=== PATIENT | female | born 2000 | race Caucasian/White ===

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

== ENCOUNTER 2021-07-24 07:52 | Outpatient (CLI) | payer OTHER, SELFPAY ==
[2021-07-24 09:48] LABS: Estimated Glomerular Filt Rate > 60
[2021-07-24 10:37] LABS: Collection Time Urine 24 HOURS
[2021-07-24 10:43] LABS: Patient Weight 185 Lbs; Total Protein Urine Random 6 mg/dL
[2021-07-24 14:37] LABS: Total Protein Urine 24 Hr 75 mg/24hr (28-141); Total Volume 24 Hour Urine 1250 ml
[2021-07-24 14:38] LABS: Creatinine Clearance Urine 179.8 ml/min (75-125)
== END 2021-07-24 07:53 | disposition home or self-care (01) ==
PROVIDERS: Visit Provider Obstetrics & Gynecology
DX: O16.9 Unspecified maternal hypertension, unspecified trimester (principal); Z3A.00 Weeks of gestation of pregnancy not specified
CPT/HCPCS: 36415; 81050; 82565; 82575; 84156

== ENCOUNTER 2021-08-20 17:10 | Emergency (ER) | payer OTHER, SELFPAY ==
[2021-08-20 17:12] VITALS: BP 135/82; PULSE 99; RESP 20; TEMP 36.6; O2SAT 100
[2021-08-20] MEDS: METOCLOPRAMIDE HCL INJ 10 MG/2 ML VIAL 5 MG IV PUSH (17:45)
[2021-08-20] MEDS: SODIUM CHLORIDE 0.9% IV 1,000 ML 150 ML IV CONT (17:45)
[2021-08-20] MEDS: MORPHINE SULFATE (*CRX) 4 MG/ML INJ IV PUSH (17:46)
[2021-08-20 17:57] LABS: Basophils Absolute Auto 0.1 K/mm3 (0.0-0.1); Basophils Percent Auto 0.4 % (0.2-1.2); Eosinophils Absolute Auto 0.2 K/mm3 (0-0.3); Eosinophils Percent Auto 1.4 % (0-4.4); Hemoglobin 12.8 g/dL (12.0-15.0); Immature Granulocyte Absolute 0.09 K/mm3 (0.00-0.031); Immature Granulocyte Percent A 0.6 % (0-0.5); Lymphocytes Absolute Auto 2.99 K/mm3 (0.9-3.2); Lymphocytes Percent Auto 20.6 % (18.3-44.2); Mean Corpuscular HGB Conc 35.6 g/dl (32-36); Mean Corpuscular Hemoglobin 32.6 pg (26-34); Mean Corpuscular Volume 91.6 fl (80-100); Monocytes Absolute Auto 1.2 K/mm3 (0.1-0.6); Monocytes Percent Auto 8.3 % (2.6-8.5); Neutrophils Percent Auto 68.7 % (45.5-73.1); Platelet Count Result 232 k/mm3 (150-375); Red Blood Count 3.93 M/mm3 (4.2-5.4); Red Cell Distribution Width 13.2 % (11.5-14.5); White Blood Count 14.5 K/mm3 (4.5-10.0)
[2021-08-20 18:03] LABS: Add Urine Microscopic? YES; Appearance Urine Cloudy (Clear); Bilirubin Urine Negative (Negative); Blood Urine Negative (Negative); Color Urine Yellow (Yellow); Glucose Urine UA Negative (Negative); Ketones Urine Negative (Negative); Leukocyte Esterase Ur Trace LEU/UL (Negative); Mucus Urine Rare /lpf; Nitrate Urine Negative (Negative); Protein Urine Negative (Negative); RBC Urine 0-2 /hpf (0-2); Specific Grav Ur 1.012 (1.001-1.035); Squamous Epithelial Cell Urine Many /hpf (Few); Urobilinogen Urine Negative mg/dL (<2.0)
[2021-08-20 18:07] LABS: Alanine Aminotransferase 17 U/L (4-35); Albumin Level 4.4 g/dL (3.7-5.6); Alkaline Phosphatase 85 U/L (45-116); Anion Gap 10 mmol/L (8-16); Aspartate Amino Transferase 24 U/L (14-36); Bilirubin,Total 0.2 mg/dL (0.2-1.3); Blood Urea Nitrogen 4 mg/dL (8-21); Carbon Dioxide 21 mmol/L (22-30); Chloride 106 mmol/L (98-107); Estimated CRCL calculation 192 ml/min; Estimated Glomerular Filt Rate > 60; Glucose 91 mg/dL (65-110); Potassium 3.6 mmol/L (3.4-5.0); Sodium 137 mmol/L (134-143)
[2021-08-20] MEDS: HYDROmorphone HCL INJ (*CRX) 1 MG/ML SYR 0.5 MG IV PUSH (18:38)
--- NOTE | 2021-08-20 19:29 | ED.HA ---
HPI - Headache General Chief Complaint: Headache Stated Complaint: headache Time Seen by Provider: 08/20/21 17:25 Source: patient and family Mode of arrival: ambulatory Limitations: no limitations History of Present Illness HPI Narrative: 20-year-old 2 para 1 about 20 weeks of gestation here with complaints of right-sided headache since this morning. Patient states that she has taken Fioricet with no relief. She denies any nausea or vomiting. She states that she had preeclampsia with previous . MD elicited complaint: headache Pertinent past history: migraines Onset (ago): day(s) (1) Location: right Severity: moderate Quality & Timing: aching Exacerbating factors: sitting/standing Relieving factors: nothing Associated symptoms: none Treatments prior to arrival: other (Fioricet) Related Data Home Medications Medication Instructions Recorded Confirmed 1 tablet PO DAILY 08/12/20 08/22/20 aspirin 81 mg PO DAILY 08/20/21 [id number] tablet PRN 08/20/21 norethindrone-e.estradiol-iron tablet 08/20/21 [Aurovela 24 Fe] Allergies Allergy/AdvReac Type Severity Reaction Status Date / Time No Known Allergies Allergy Verified 08/20/21 17:32 Review of Systems Review of Systems: All systems reviewed & are unremarkable except as noted in HPI and below Constitutional: Constitutional: Reports no additional constitutional complaints Eyes: Eyes: Reports no additional eye complaints Cardiovascular: Cardiovascular: Reports no additional cardiovascular complaints Respiratory: Respiratory: Reports no additional respiratory complaints Gastrointestinal: Gastrointestinal: Reports no additional gastrointestinal complaints Musculoskeletal: Musculoskeletal: Reports no additional musculoskeletal complaints Neurologic: Reports as per HPI Psychiatric: Psychiatric: Reports no additional psychiatric complaints [facility] Past Medical History Medical History History of pelvic inflammatory disease Social History Social History Smoking status: Never smoker Substance use: never Exam Narrative: GENERAL: Well-appearing, well-nourished, and in no acute distress. HEAD: Normocephalic, atraumatic. EYES: PERRLA and EOMI.. NECK: Supple. CHEST: Clear to auscultation. No respiratory distress. HEART: Regular rate and rhythm. No murmur heard. Normal peripheral pulses. ABDOMEN: Soft, nontender, nondistended, normal active bowel sounds. EXTREMITIES: Normal range of motion. No edema. SKIN: Warm, dry, no rash. NEURO: No focal deficits. Alert and oriented x3. PSYCH: Normal mood and affect. Course Course Emergency Course: Patient still continues to be in pain after IV fluids Reglan and morphine. She states her pain has not improved I did give her 0.5 of Dilaudid which brought the pain down to 5. Discussed with Dr. Drake informed her about the patient?labs. Patient can be discharged home and advised to continue home medication. She feels comfortable going home. Vital Signs Vital signs: Vital Signs Temperature 36.6 C 08/20/21 17:12 Pulse Rate 99 08/20/21 17:12 Respiratory Rate 20 08/20/21 17:12 Blood Pressure 135/82 08/20/21 17:12 Pulse Oximetry 100 08/20/21 17:12 Temperature 36.6 C 08/20/21 17:12 Pulse Rate 99 08/20/21 17:12 Respiratory Rate 20 08/20/21 17:12 Blood Pressure 135/82 08/20/21 17:12 Pulse Oximetry 100 08/20/21 17:12 MDM - Headache Lab Data Result diagrams: 08/20/21 17:45 08/20/21 17:45 Labs: Lab Results 08/20/21 08/20/21 08/20/21 Range/Units 17:45 17:45 17:45 WBC 14.5 H (4.5-10.0) K/mm3 RBC 3.93 L (4.2-5.4) M/mm3 Hgb 12.8 (12.0-15.0) g/dL Hct 36.0 L (37.0-47.0) % MCV 91.6 (80-100) fl MCH 32.6 (26-34) pg MCHC 35.6 (32-36) g/dl RDW 13.2 (11.5-14.5) % Plt
[2021-08-20 19:36] VITALS: BP 111/74; PULSE 75; RESP 16; O2SAT 100
== END 2021-08-20 19:37 | disposition home or self-care (01) ==
PROVIDERS: Emergency Provider Family Medicine
DX: O26.892 Other specified pregnancy related conditions, second trimester (principal); G43.019 Migraine without aura, intractable, without status migrainosus; Z3A.20 20 weeks gestation of pregnancy
CPT/HCPCS: 36415; 80053; 81001; 85025; 96361; 96374; 96375; 99284; J1170; J2270; J2765; J7030

== ENCOUNTER 2021-10-12 21:19 | Emergency (ER) | payer OTHER, SELFPAY ==
[2021-10-12 21:41] VITALS: BP 142/84; PULSE 139; RESP 18; TEMP 37.3; O2SAT 100
--- NOTE | 2021-10-12 22:22 | PC.NURSE ---
Pt stated she was going to check herself out. speech clear. resps even/nonlabored. no s/s of distress. ambulatory c steady, even, unassisted gait.
== END 2021-10-13 04:05 | disposition left against medical advice (07) ==
LOC: ANHED 22:28
DX: Z53.21 Procedure and treatment not carried out due to patient leaving prior to being seen by health care provider (principal)
CPT/HCPCS: 99199

== ENCOUNTER 2021-11-07 11:10 | Outpatient (CLI) | payer OTHER, SELFPAY ==
[2021-11-07 11:35] VITALS: BP 125/80; PULSE 104
[2021-11-07 11:45] VITALS: BP 111/73; PULSE 91
[2021-11-07 11:46] LABS: Basophils Absolute Auto 0.1 K/mm3 (0.0-0.1); Basophils Percent Auto 0.4 % (0.2-1.2); Eosinophils Absolute Auto 0.2 K/mm3 (0-0.3); Eosinophils Percent Auto 1.3 % (0-4.4); Hematocrit 30.7 % (37.0-47.0); Hemoglobin 10.3 g/dL (12.0-15.0); Immature Granulocyte Absolute 0.12 K/mm3 (0.00-0.031); Lymphocytes Absolute Auto 1.96 K/mm3 (0.9-3.2); Lymphocytes Percent Auto 15.8 % (18.3-44.2); Mean Corpuscular HGB Conc 33.6 g/dl (32-36); Mean Corpuscular Hemoglobin 30.7 pg (26-34); Mean Corpuscular Volume 91.4 fl (80-100); Mean Platelet Volume 10.3 fl (7.4-10.4); Monocytes Absolute Auto 1.1 K/mm3 (0.1-0.6); Monocytes Percent Auto 8.6 % (2.6-8.5); Neutrophils Percent Auto 72.9 % (45.5-73.1); Platelet Count Result 200 k/mm3 (150-375); Red Blood Count 3.36 M/mm3 (4.2-5.4); Red Cell Distribution Width 12.8 % (11.5-14.5); White Blood Count 12.4 K/mm3 (4.5-10.0)
[2021-11-07 11:59] LABS: Add Urine Microscopic? YES; Amorphous Sediment Urine Few; Appearance Urine Cloudy (Clear); Bacteria Urine Trace /hpf; Bilirubin Urine Negative (Negative); Blood Urine Negative (Negative); Color Urine Yellow (Yellow); Glucose Urine UA Negative (Negative); Ketones Urine Negative (Negative); Leukocyte Esterase Ur Negative LEU/UL (NEGATIVE); Mucus Urine Rare /lpf; Nitrate Urine Negative (Negative); Protein Urine Negative (Negative); Specific Grav Ur 1.018 (1.001-1.035); Squamous Epithelial Cell Urine Many /hpf (Few); Urobilinogen Urine Negative mg/dL (<2.0)
[2021-11-07 12:00] VITALS: BP 124/78; PULSE 105
[2021-11-07 12:02] LABS: Alanine Aminotransferase 20 U/L (4-35); Albumin Level 3.8 g/dL (3.7-5.6); Alkaline Phosphatase 142 U/L (45-116); Anion Gap 10 mmol/L (8-16); Aspartate Amino Transferase 25 U/L (14-36); Bilirubin,Total 0.3 mg/dL (0.2-1.3); Blood Urea Nitrogen 4 mg/dL (8-21); Calcium 8.6 mg/dL (8.9-10.7); Carbon Dioxide 22 mmol/L (22-30); Chloride 103 mmol/L (98-107); Estimated Glomerular Filt Rate > 60; Glucose 93 mg/dL (65-110); Potassium 3.7 mmol/L (3.4-5.0); Sodium 135 mmol/L (134-143); Uric Acid 3.4 mg/dL (3.0-5.9)
[2021-11-07 12:15] VITALS: BP 120/63; PULSE 92
[2021-11-07 12:30] VITALS: BP 118/73; PULSE 96
--- NOTE | 2021-11-07 12:30 | PC.NURSE ---
Dr. Drake on unit. Labs reviewed. February D/C home.
[2021-11-07 14:33] LABS: Creatinine Urine 122.6 mg/dL; Total Protein Urine Random 9 mg/dL; Ur Ttl Prot Creatinine Ratio 0.07 mg/mg (0-0.20)
== END 2021-11-07 12:51 | disposition home or self-care (01) ==
LOC: ANHOBOP 11:15 → ANHOBPP 11:16
PROVIDERS: Visit Provider Obstetrics & Gynecology
DX: O13.9 Gestational [pregnancy-induced] hypertension without significant proteinuria, unspecified trimester (principal); Z3A.00 Weeks of gestation of pregnancy not specified
CPT/HCPCS: 36415; 59025; 80053; 81001; 82570; 84156; 84550; 85025; 87086; 99199

== ENCOUNTER 2021-11-08 12:32 | Outpatient (NON) | payer OTHER, SELFPAY ==
[2021-11-08 13:27] VITALS: BMI 32.3
[2021-11-08 15:04] LABS: Collection Time Urine 24 HOURS
[2021-11-08 15:07] LABS: Total Volume 24 Hour Urine 1200 ml
[2021-11-08 15:08] LABS: Patient Weight 194 Lbs
[2021-11-08 15:40] LABS: Creatinine Clearance Urine 144.8 ml/min (75-125); Creatinine Urine 97.7 mg/dL; Total Protein Urine 24 Hr 180 mg/24hr (28-141); Total Protein Urine Random 15 mg/dL
== END 2021-11-08 12:33 | disposition home or self-care (01) ==
LOC: ANHOBOP 12:37
PROVIDERS: Visit Provider Obstetrics & Gynecology
DX: R51.9 Headache, unspecified (principal)
CPT/HCPCS: 81050; 82575; 84156

== ENCOUNTER 2021-11-12 15:43 | Outpatient (CLI) | payer OTHER, SELFPAY ==
--- NOTE | ~2021-11-12 | US_ITS ---
EXAMINATION: US right upper quadrant DATE: 11/12/2021 16:07 INDICATION: Right upper quadrant abdominal pain. Third trimester of . TECHNIQUE: Multiple grayscale and Doppler ultrasound images of the abdomen were obtained. COMPARISON: None FINDINGS: The visualized portions of the abnormality of the pancreas are normal. The liver is normal without focal lesion. No liver surface nodularity. There is normal flow in main portal vein. The gall bladder is normal in size. No gallstones or gallbladder wall thickening. There is no sonographic Murp hy sign. The common duct is normal and measures 3 mm. IMPRESSION: 1. Normal right upper quadrant ultrasound. Reviewed, dictated and finalized at location [facility]
== END 2021-11-12 15:44 | disposition home or self-care (01) ==
LOC: ANHIMG 15:44
PROVIDERS: Visit Provider Obstetrics & Gynecology
DX: R10.11 Right upper quadrant pain (principal)
CPT/HCPCS: 76705

== ENCOUNTER 2021-11-20 18:26 | Observation (INO) | payer OTHER, SELFPAY ==
[2021-11-20] VITALS (10 sets, daily range): BP systolic 118–132; BP diastolic 56–80; PULSE 115–142; RESP 18; TEMP 37.6; BMI 32.3
--- NOTE | 2021-11-20 19:37 | OBADM ---
This patient, Glenn Romero, admitted to the OB room Labor/Delivery/Recovery 107 for observation. Patient/family oriented to hospital policies and general routines including ID bracelet, bed and alarms, visiting hours, pain management, procedures, bathroom and other care routines, personal items, smoking policy, room service/diet, and visiting hours. Patient/Family are encouraged to report perceived risks to care and to ask questions if they do not understand what they are told or what they should do.
--- NOTE | 2021-12-16 11:54 | PM.OBTRLD ---
OB - Triage/Final Diagnosis Visit Information Comments/Additional reasons for admission: I have assessed the risk for this patient, Glenn Romero, and determined that she would benefit from observation care. Final Diagnosis (1) False labor: Code(s): O47.9 - False labor, unspecified Status: Acute
== END 2021-11-20 21:39 | disposition home or self-care (01) ==
PROVIDERS: Admitting Provider Obstetrics & Gynecology; Visit Provider Obstetrics & Gynecology
DX: O47.02 False labor before 37 completed weeks of gestation, second trimester (principal); Z3A.34 34 weeks gestation of pregnancy
CPT/HCPCS: G0378; G0379

== ENCOUNTER 2021-11-28 12:13 | Observation (INO) | payer OTHER, SELFPAY ==
[2021-11-28 12:33] VITALS: BP 119/80; PULSE 104
[2021-11-28 12:37] VITALS: TEMP 36.9
[2021-11-28 12:45] VITALS: BP 122/75; PULSE 101
[2021-11-28 13:00] VITALS: BP 117/71; PULSE 97
[2021-11-28 13:06] LABS: Add Urine Microscopic? YES; Amorphous Sediment Urine Moderate; Appearance Urine Cloudy (Clear); Bilirubin Urine Negative (Negative); Blood Urine Negative (Negative); Color Urine Yellow (Yellow); Glucose Urine UA Negative (Negative); Ketones Urine Negative (Negative); Leukocyte Esterase Ur Negative LEU/UL (Negative); Mucus Urine Few /lpf; Nitrate Urine Negative (Negative); Protein Urine 1+ mg/dL (Negative); Specific Grav Ur 1.026 (1.001-1.035); Squamous Epithelial Cell Urine Occasional /hpf (Few); WBC Urine 0-3 /hpf
[2021-11-28 13:15] VITALS: BP 114/78; PULSE 93
[2021-11-28 13:29] VITALS: BMI 32.6
[2021-11-28 13:30] VITALS: BP 119/74; PULSE 102
--- NOTE | 2021-11-28 13:30 | OBADM ---
This patient, Glenn Romero, admitted to the OB room OB Post 112 for observation. Patient/family oriented to hospital policies and general routines including ID bracelet, bed and alarms, visiting hours, pain management, procedures, bathroom and other care routines, personal items, smoking policy, room service/diet, and visiting hours. Patient/Family are encouraged to report perceived risks to care and to ask questions if they do not understand what they are told or what they should do.
--- NOTE | 2021-12-16 11:44 | P.PNOB_ITS ---
OB - Triage/Final Diagnosis Visit Information Comments/Additional reasons for admission: I have assessed the risk for this patient, Glenn Romero, and determined that she would benefit from observation care. Evaluation Laboratory results: Laboratory Tests 11/28/21 12:52 Urine Color Yellow Urine Appearance Cloudy H Urine pH 7.0 Ur Specific [place] 1.026 Urine Protein 1+ H Urine Glucose (UA) Negative Urine Ketones Negative Ur Blood (Man) Negative Urine Nitrate Negative Urine Bilirubin Negative Urine Urobilinogen 2.0 H Leukocyte Esterase Rfl Negative Urine RBC 11-20 H Urine WBC 0-3 Ur Squamous Epith Cells Occasional Amorphous Sediment Moderate H Urine Mucus Few H Final Diagnosis (1) False labor: Code(s): O47.9 - False labor, unspecified Status: Acute
== END 2021-11-28 13:45 | disposition home or self-care (01) ==
PROVIDERS: Admitting Provider Obstetrics & Gynecology; Visit Provider Obstetrics & Gynecology
DX: O47.03 False labor before 37 completed weeks of gestation, third trimester (principal); Z3A.35 35 weeks gestation of pregnancy
CPT/HCPCS: 81001; G0378; G0379

== ENCOUNTER 2021-12-02 19:16 | Observation (INO) | payer OTHER, SELFPAY ==
[2021-12-02 19:30] VITALS: BP 135/79; PULSE 113
[2021-12-02 19:59] VITALS: TEMP 36.9
[2021-12-02 20:41] VITALS: BP 108/57; PULSE 86
[2021-12-02] MEDS: CYCLOBENZAPRINE HCL 10 MG TABLET PO (20:55)
[2021-12-02 21:08] VITALS: BMI 32.3
--- NOTE | 2021-12-02 21:08 | OBADM ---
This patient, Glenn Romero, admitted to the OB room Labor/Delivery/Recovery 106 for observation. Patient/family oriented to hospital policies and general routines including ID bracelet, bed and alarms, visiting hours, pain management, procedures, bathroom and other care routines, personal items, smoking policy, room service/diet, and visiting hours. Patient/Family are encouraged to report perceived risks to care and to ask questions if they do not understand what they are told or what they should do.
--- NOTE | 2021-12-02 21:15 | PC.NURSE ---
2035- called,informed pt came in for back pain and contractions. SVE is 1 cm which is unchanged from her exam last week. Pt has had 2 contractions in the last hour, but still c/o back pain. Heating pad was given to pt when she arrived. Pt states she has taken tylenol, a warm bath, and applied the heating pad all day long. Order received for flexeril and discharge pt home to see at her scheduled appt tomorrow where he can prescribe flexeril if pt states it worked for her.
--- NOTE | 2021-12-04 09:09 | PM.OBTRLD ---
OB - Triage/Final Diagnosis Visit Information Date of evaluation: 12/02/21 Reason for evaluation: threatened labor Comments/Additional reasons for admission: I have assessed the risk for this patient, Glenn Romero, and determined that she would benefit from observation care.
== END 2021-12-02 21:00 | disposition home or self-care (01) ==
PROVIDERS: Admitting Provider Student in an Organized Health Care Education/Training Program; Visit Provider Student in an Organized Health Care Education/Training Program
DX: O47.03 False labor before 37 completed weeks of gestation, third trimester (principal); Z3A.36 36 weeks gestation of pregnancy
CPT/HCPCS: A9270; G0378; G0379

== ENCOUNTER 2021-12-06 15:35 | Outpatient (RCR) | payer OTHER, SELFPAY ==
[2021-11-15 18:14] VITALS: BP 119/73; PULSE 101
[2021-12-06 16:28] VITALS: BP 121/76; PULSE 104
== END 2021-12-24 10:46 | disposition home or self-care (01) ==
LOC: ANHOBOP 15:35
PROVIDERS: Referring Provider Obstetrics & Gynecology; Visit Provider Obstetrics & Gynecology
DX: O09.293 Supervision of pregnancy with other poor reproductive or obstetric history, third trimester (principal); Z3A.33 33 weeks gestation of pregnancy; O36.8130 Decreased fetal movements, third trimester, not applicable or unspecified; Z3A.36 36 weeks gestation of pregnancy
CPT/HCPCS: 59025

== ENCOUNTER 2021-12-10 13:52 | Outpatient (CLI) | payer OTHER, SELFPAY ==
[2021-12-10 14:15] VITALS: BP 120/82; PULSE 111
[2021-12-10 14:30] VITALS: BP 113/73; PULSE 109
[2021-12-10 14:44] LABS: Basophils Percent Auto 0.3 % (0.2-1.2); Eosinophils Absolute Auto 0.1 K/mm3 (0-0.3); Eosinophils Percent Auto 0.6 % (0-4.4); Hematocrit 29.7 % (37.0-47.0); Hemoglobin 9.8 g/dL (12.0-15.0); Immature Granulocyte Absolute 0.06 K/mm3 (0.00-0.031); Immature Granulocyte Percent A 0.5 % (0-0.5); Lymphocytes Absolute Auto 2.03 K/mm3 (0.9-3.2); Lymphocytes Percent Auto 17.7 % (18.3-44.2); Mean Corpuscular Volume 87.9 fl (80-100); Mean Platelet Volume 10.6 fl (7.4-10.4); Monocytes Absolute Auto 1.3 K/mm3 (0.1-0.6); Monocytes Percent Auto 11.6 % (2.6-8.5); Neutrophils Percent Auto 69.3 % (45.5-73.1); Platelet Count Result 202 k/mm3 (150-375); Red Blood Count 3.38 M/mm3 (4.2-5.4); Red Cell Distribution Width 13.2 % (11.5-14.5); White Blood Count 11.5 K/mm3 (4.5-10.0)
[2021-12-10 14:45] VITALS: BP 117/76; PULSE 107
[2021-12-10 14:54] LABS: Alanine Aminotransferase 16 U/L (4-35); Albumin Level 3.6 g/dL (3.5-5.1); Alkaline Phosphatase 189 U/L (38-126); Anion Gap 6 mmol/L (8-16); Aspartate Amino Transferase 27 U/L (14-36); Bilirubin,Total 0.4 mg/dL (0.2-1.3); Blood Urea Nitrogen 5 mg/dL (7-17); Calcium 8.2 mg/dL (8.4-10.2); Carbon Dioxide 22 mmol/L (22-30); Chloride 105 mmol/L (98-107); Estimated Glomerular Filt Rate > 60; Glucose 74 mg/dL (65-110); Potassium 3.8 mmol/L (3.4-5.0); Sodium 133 mmol/L (137-145); Uric Acid 3.8 mg/dL (2.5-7.5)
[2021-12-10 14:56] LABS: Add Urine Microscopic? NO; Appearance Urine Clear (Clear); Bilirubin Urine Negative (Negative); Blood Urine Negative (Negative); Color Urine Yellow (Yellow); Glucose Urine UA Negative (Negative); Ketones Urine Negative (Negative); Leukocyte Esterase Ur Negative LEU/UL (NEGATIVE); Nitrate Urine Negative (Negative); Protein Urine Negative (Negative); Specific Grav Ur 1.016 (1.001-1.035); Urobilinogen Urine Negative mg/dL (<2.0)
[2021-12-10 15:00] VITALS: BP 112/70; PULSE 98
[2021-12-10 15:15] VITALS: BP 113/70; PULSE 103
[2021-12-10 15:39] LABS: Creatinine Urine 96.4 mg/dL; Total Protein Urine Random 12 mg/dL; Ur Ttl Prot Creatinine Ratio 0.12 mg/mg (0-0.20)
[2021-12-10] MEDS: ACETAMINOPHEN/BUTALBITAL/CAFFEINE 325-50-40 MG TABLET (FIORICET) 1 TAB PO (15:55)
== END 2021-12-10 15:50 | disposition home or self-care (01) ==
LOC: ANHOBOP 13:57 → ANHOBPP 13:58
PROVIDERS: Visit Provider Obstetrics & Gynecology
DX: O13.9 Gestational [pregnancy-induced] hypertension without significant proteinuria, unspecified trimester (principal); Z3A.00 Weeks of gestation of pregnancy not specified
CPT/HCPCS: 36415; 59025; 80053; 81003; 82570; 84156; 84550; 85025; 87086; 87088; 99199; A9270

== ENCOUNTER 2021-12-12 12:43 | Outpatient (CLI) | payer OTHER, SELFPAY ==
[2021-12-12 14:26] VITALS: BMI 33.5
[2021-12-12 15:10] LABS: Collection Time Urine 24 HOURS
[2021-12-12 15:23] LABS: Total Volume 24 Hour Urine 1600 ml
[2021-12-12 15:27] LABS: Patient Weight 195 Lbs
[2021-12-12 15:29] LABS: Total Protein Urine 24 Hr 288 mg/24hr (28-141); Total Protein Urine Random 18 mg/dL
[2021-12-12 15:30] LABS: Creatinine Clearance Urine 205.3 ml/min (75-125); Creatinine Urine 82.4 mg/dL
== END 2021-12-12 12:44 | disposition home or self-care (01) ==
LOC: ANHOBOP 14:09
PROVIDERS: Visit Provider Obstetrics & Gynecology
DX: O13.3 Gestational [pregnancy-induced] hypertension without significant proteinuria, third trimester (principal); Z3A.38 38 weeks gestation of pregnancy
CPT/HCPCS: 81050; 82575; 84156

== ENCOUNTER 2021-12-17 05:44 | Inpatient (IN) | payer OTHER, SELFPAY ==
[2021-12-17] VITALS (76 sets, daily range): BP systolic 90–130; BP diastolic 45–97; PULSE 75–140; TEMP 36.3–38.6; O2SAT 98–100; BMI 33.3
--- NOTE | 2021-12-17 06:21 | LDADM ---
This patient, Glenn Romero, was admitted to Labor/Delivery/Recovery 103 on 12/17/21 at 05:44. Plans for labor, pain management and were discussed with patient. Patient/family oriented to hospital policies and general routines including ID bracelet, bed and alarms, visiting hours, pain management, procedures, bathroom and other care routines, personal items, smoking policy, room service/diet and guest tray routines, infant security routines, and visiting hours. Patient/Family are encouraged to report perceived risks to care and to ask questions if they do not understand what they are told or what they should do. See OBIX for further documentation.
--- NOTE | 2021-12-17 06:21 | WPDANESEPP ---
Anes - Eval Pre Procedure Procedure: Labor epidural Date/Time: 12/17/21 06:21 Surgeon: Noelle Preop Diagnosis: Abd pain with contractions Pre Op Diagnosis: IOL Patient Data Age: 21 Gender: F Height: Weight: Last Vital Signs Pulse 108 H 12/17/21 06:18 BP 117/77 12/17/21 06:18 Allergies Allergy/AdvReac Type Severity Reaction Status Date / Time No Known Allergies Allergy Verified 12/07/21 13:24 Home Medications Medication Instructions Recorded Confirmed Type 1 tablet PO DAILY 08/12/20 11/20/21 History aspirin 81 mg PO DAILY 08/20/21 11/20/21 History Patient hx anesthesia problems: none Family hx anesthesia problems: none Results Review: All pre-operative results and documents have been reviewed as part of the pre-operative evaluation. [facility] Past Medical History Medical History Anemia History of pelvic inflammatory disease PIH ( induced hypertension) Post depression Preeclampsia and not yet delivered Scoliosis Family History Family History Sibling Asthma Sibling ADHD Asthma Father Hypertension Social History Social History Smoking status: Never smoker Substance use: never Spiritual care concerns: No Exam Day of Procedure 12/17/21 06:21 Patient weight: overweight Airway: Mallampati scale class II Neurological: alert and oriented
[2021-12-17 06:46] LABS: Basophils Absolute Auto 0.1 K/mm3 (0.0-0.1); Basophils Percent Auto 0.5 % (0.2-1.2); Eosinophils Absolute Auto 0.2 K/mm3 (0-0.3); Hematocrit 29.1 % (37.0-47.0); Hemoglobin 9.4 g/dL (12.0-15.0); Immature Granulocyte Absolute 0.06 K/mm3 (0.00-0.031); Immature Granulocyte Percent A 0.6 % (0-0.5); Lymphocytes Absolute Auto 2.53 K/mm3 (0.9-3.2); Lymphocytes Percent Auto 24.3 % (18.3-44.2); Mean Corpuscular HGB Conc 32.3 g/dl (32-36); Mean Corpuscular Hemoglobin 28.3 pg (26-34); Mean Corpuscular Volume 87.7 fl (80-100); Mean Platelet Volume 10.6 fl (7.4-10.4); Monocytes Absolute Auto 1.2 K/mm3 (0.1-0.6); Neutrophils Absolute Auto 6.4 K/mm3 (1.3-6.7); Neutrophils Percent Auto 61.6 % (45.5-73.1); Platelet Count Result 202 k/mm3 (150-375); Red Blood Count 3.32 M/mm3 (4.2-5.4); Red Cell Distribution Width 13.6 % (11.5-14.5); White Blood Count 10.4 K/mm3 (4.5-10.0)
[2021-12-17] MEDS: OXYTOCIN 30 UNITS/NS 500 ML 30 UNITS/500 ML BAG IV CONT (06:47)
[2021-12-17] MEDS: LACTATED RINGERS 1,000 ML 125 ML IV CONT ×2 (06:48→11:34)
[2021-12-17 07:17] LABS: Alanine Aminotransferase 21 U/L (4-35); Albumin Level 3.4 g/dL (3.5-5.1); Alkaline Phosphatase 185 U/L (38-126); Anion Gap 9 mmol/L (8-16); Aspartate Amino Transferase 38 U/L (14-36); Bilirubin,Total 0.2 mg/dL (0.2-1.3); Blood Urea Nitrogen 4 mg/dL (7-17); Calcium 7.9 mg/dL (8.4-10.2); Carbon Dioxide 20 mmol/L (22-30); Chloride 105 mmol/L (98-107); Estimated CRCL calculation 195 ml/min; Estimated Glomerular Filt Rate > 60; Glucose 88 mg/dL (65-110); Potassium 3.7 mmol/L (3.4-5.0); Sodium 134 mmol/L (137-145); Uric Acid 4.1 mg/dL (2.5-7.5)
--- NOTE | 2021-12-17 08:40 | WPDOBADMIT ---
Obstetrics - Admit Note Admission Note: record reviewed. Additions to the history and/or subsequent changes in the physical findings follow. 21 y/o at 38 2/7 weeks with a history of severe preeclampsia with 35 week delivery in previous . BP has been gradually increasing. Headaches have been increasing. Cervix is favorable. She has elected to go ahead with induction of labor. GBS neg. AVSS NST reactive TOCO: contractions irregularly ABD soft, nontender, gravid, vertex EXT nontender Cervix 3/50/-2. AROM with clear fluid. A: IUP at term with mildly elevated bp, history of prior severe preeclampsia. P: Oxytocin. Anticipate .
[2021-12-17 10:36] LABS: Rapid Plasma Reagin Non-Reactive (NonReactive)
--- NOTE | 2021-12-17 12:45 | PM.OBPNLAB ---
Pain Control Date/time seen: 12/17/21 1245 Comfortable with epidural. AVSS NST reactive TOCO: contractions every 2-3 min Cervix /-2 Continue labor.
[2021-12-17] MEDS: SODIUM CHLORIDE 0.9% IV 300 ML 600 ML I-UTERINE (16:35)
--- NOTE | 2021-12-17 17:45 | PM.OBPNLAB ---
Pain Control Date/time seen: 12/17/21 1745 Comfortable with epidural. AVSS ABD soft, nontender, gravid, vertex EXT nontender Cervix /1 Continue labor.
--- NOTE | 2021-12-17 20:59 | PM.OBPRVD ---
OB - Delivery Note Procedure Delivery date: 12/17/21 Procedure: Induction of labor with Induction method: Per Pitocin Protocol Delivery augmentation: Rupture of Membranes Delivery monitor: External FHT, External Uterine and Internal Uterine Route of delivery: Laceration Description: Perineal - 1st Degree Delivery repair: vicryl (3-0 vicryl) Specimen: Yes (cord blood, placenta) Quantitative Blood Loss (ml): 110 Anesthesia type: Epidural Disposition: PACU Complications: None Narrative: 21 y/o at 38 2/7 weeks gestation who presented to the hospital for induction of labor. Oxytocin was administered intravenously. Amniotomy was performed with return of clear fluid. She received an epidural for pain control. Her labor progressed and her cervix dilated completely. She pushed with good effort and delivered the infant's head to the perineum. A loose nuchal cord was splinted and the body delivered. The cord was reduced. The nose and mouth were bulb suctioned. After a delay, the cord was clamped and cut. The was handed off the field. Cord blood was collected. The placenta delivered spontaneously and was grossly normal in appearance. The usual 3 vessel cord was noted. A first degree midline perineal laceration was sustained. This was reapproximated using 3 0 Vicryl in interrupted figure of eight fashion. Excellent hemostasis resulted as did excellent reapproximation of the normal anatomy. Needle and instrument counts were correct. The patient was taken to recovery room in stable condition. The infant went to the nursery in stable condition. I was present and scrubbed for the entire delivery. Baby Date of : 12/17/21 Time of : 20:35 Weeks of gestation at delivery: 38 Infant gender: Female Weight (pounds): 7 Weight (ounces): 13 presentation: vertex position: Left Occiput Anterior Placenta delivery description: Spontaneous Cord Vessel Description: 3 Vessels, Nuchal Cord and Delayed Cord Clamping score one minute: 9 score five minutes: 9
--- NOTE | 2021-12-17 21:02 | PM.OBDSVD ---
DS: Admitting Diagnosis Discharge Date 12/19/21 Admitting Diagnosis IUP at 38 2/7 weeks Gestational hypertension DS: Discharge Diagnosis Discharge Diagnosis (1) (normal spontaneous vaginal delivery): Code(s): O80 - Encounter for full-term uncomplicated delivery Status: Acute (2) Gestational hypertension: Code(s): O13.9 - Gestational [-induced] hypertension without significant proteinuria, unspecified trimester Status: Acute (3) History of pre-eclampsia in prior , currently : Code(s): O09.299 - Supervision of with other poor reproductive or obstetric history, unspecified trimester Status: Acute OB - DS: Summary OB Procedures : None OB Procedures Intrapartum: Spontaneous Vag Delivery OB Procedures: : None DS: Data Data Completed and Pending Labs on day of discharge: Labs from last 24 hours 12/17/21 12/17/21 12/17/21 06:28 06:28 06:28 WBC RBC Hgb Hct MCV MCH MCHC RDW Plt Count MPV Immature Gran % (Auto) Neut % (Auto) Lymph % (Auto) [place] % (Auto) Eos % (Auto) Baso % (Auto) Lymph # (Auto) [place] # (Auto) Eos # (Auto) Baso # (Auto) Abs Immat Gran (auto) Absolute Neuts (auto) Absolute Nucleated RBC Nucleated RBC % Sodium 134 L Potassium 3.7 Chloride 105 Carbon Dioxide 20 L Anion Gap 9 BUN 4 L Creatinine 0.40 L Estim Creat Clear Calc 195 Estimated GFR > 60 Glucose 88 Uric Acid 4.1 Calcium 7.9 L Total Bilirubin 0.2 AST 38 H ALT 21 Alkaline Phosphatase 185 H Total Protein 6.0 L Albumin 3.4 L RPR Non-reactive Blood Type O Positive Antibody Screen Negative 12/17/21 06:28 WBC 10.4 H RBC 3.32 L Hgb 9.4 L Hct 29.1 L MCV 87.7 MCH 28.3 MCHC 32.3 RDW 13.6 Plt Count 202 MPV 10.6 H Immature Gran % (Auto) 0.6 H Neut % (Auto) 61.6 Lymph % (Auto) 24.3 [place] % (Auto) 11.0 H Eos % (Auto) 2.0 Baso % (Auto) 0.5 Lymph # (Auto) 2.53 [place] # (Auto) 1.2 H Eos # (Auto) 0.2 Baso # (Auto) 0.1 Abs Immat Gran (auto) 0.06 H Absolute Neuts (auto) 6.4 Absolute Nucleated RBC 0.0 Nucleated RBC % 0.0 Sodium Potassium Chloride Carbon Dioxide Anion Gap BUN Creatinine Estim Creat Clear Calc Estimated GFR Glucose Uric Acid Calcium Total Bilirubin AST ALT Alkaline Phosphatase Total Protein Albumin RPR Blood Type Antibody Screen Discharge Plan Discharge Attending physician on discharge: Kishor Drake Discharging Clinician: Kishor Drake Patient Disposition: Home, Self-Care Activity: pelvic rest Diet: regular Discharge Instructions: Call or return if temperature above 100.4? F, increased abdominal pain, increased vaginal bleeding or any new problems. Stand Alone Forms: General Discharge Information Follow-up/Referrals: Kishor Drake MD [Physician] - 6 Weeks Discharge Medications: New ibuprofen 600 mg tablet 600 mg PO Q6H PRN (Reason: cramps) Qty: 30 RF: 0 ferrous sulfate 325 mg (65 mg iron) tablet 325 mg PO DAILY Qty: 30 RF: 0 Continued 400 mcg Tablet,Chewable 1 tablet PO DAILY RF: 0 Date of admission: 12/17/21 05:44 Primary Care Provider: PHYSICIAN,PLANT OPERATOR Admitting Provider: Kishor Drake Attending physician on admission: Kishor Drake Condition: Stable
[2021-12-17] MEDS: OXYTOCIN 30 UNITS/NS 500 ML 30 UNITS/500 ML BAG 125 UNITS IV CONT (21:30)
[2021-12-17] MEDS: IBUPROFEN 600 MG TABLET PO (23:11)
--- NOTE | 2021-12-18 00:22 | OBPPTRN ---
Patient transferred to post room #292 via wheelchair. Support person present. Oriented to unit, room, information board, rooming in, admission packet and security measures. Patient verbalizes understanding.
[2021-12-18 00:30] VITALS: BP 113/73; PULSE 76; RESP 16; TEMP 37.3; O2SAT 98
[2021-12-18] MEDS: ACETAMINOPHEN 325 MG TABLET 650 MG PO ×3 (01:42→19:41)
[2021-12-18 04:17] VITALS: BP 101/57; PULSE 78; RESP 18; TEMP 36.4; O2SAT 98
[2021-12-18] MEDS: IBUPROFEN 600 MG TABLET PO ×2 (05:00→16:15)
[2021-12-18 05:27] LABS: Hematocrit 29.9 % (37.0-47.0); Hemoglobin 9.5 g/dL (12.0-15.0)
[2021-12-18 08:30] VITALS: BP 118/77; PULSE 84; RESP 18; TEMP 36.3; O2SAT 99
[2021-12-18] MEDS: MULTIVIT/MIN/PREN/FOL AC/IRON TABLET 1 TAB PO (09:33)
[2021-12-18] MEDS: POLYSACCHARIDE IRON COMPLEX 150 MG CAPSULE PO ×2 (09:33→16:15)
[2021-12-18] MEDS: DOCUSATE SODIUM 100 MG CAPSULE PO ×2 (09:34→16:15)
--- NOTE | 2021-12-18 09:58 | WPDANLDPN2 ---
Anes-Prog Note L&D Date/Time: 12/18/21 09:58 Comfortable throughout: labor and delivery Neuraxial method: epidural Epidural/Spinal procedure site: clean & non-tender Neuro status: Neuro function grossly intact. Cardiovascular status: normal Respiratory status: normal Airway patency: baseline Mental status: baseline Post-Op hydration status: normal Vital Signs: Last Vital Signs Temp 36.3 C L 12/18/21 08:30 Pulse 84 12/18/21 08:30 Resp 18 12/18/21 08:30 BP 118/77 12/18/21 08:30 Pulse Ox 99 12/18/21 08:30 Pain score (VAS): 0 I/O: Intake & Output 12/17/21 12/18/21 12/18/21 23:59 07:59 15:59 Intake Total 500 Output Total 110 523 Balance -110 -23 Post-procedural complaints: none Patient feedback: Patient satisfied with anesthetic care.
[2021-12-18 12:05] VITALS: BP 115/64; PULSE 77; RESP 16; TEMP 36.3; O2SAT 99
--- NOTE | 2021-12-18 12:28 | PC.NURSE ---
[id number] Introductions were made. Mother has latched optimally to the breast and denies any discomfort. Reviewed good handwashing when working with infant, breast, nipples and how to protect the nipples with a deep latch. Encouraged understanding the benefits of skin to skin, responding to feeding cues, frequencies of feeding 8-12 times in 24 hours (approximately 2-3 hours), duration of feedings, milk production, intake/output feeding sheet and signs of adequate intake. Discussed stimulating with skin to skin, hand expressing colostrum, touch and talking to infant to encourage eating at the breast. Reviewed positioning and alignment, supporting breast, off-centered (asymmetrical latch) and leading with the chin with big open wide gape. Education given to mother of how to visualize suck/swallow ratios and drinking at the breast. was [able/not able] to maintain latch without discomfort to mother. Nipple care with optimal latch. Mother voiced understanding responding to feeding cues, may need to stimulating approximately 2-3 hours from the start of the last feeding, calling for assistance if the infant does not latch or there discomfort . Reported to primary RN.
--- NOTE | 2021-12-18 12:32 | PC.NURSE ---
[phone] Patient called out for assistance with . Mother works well with her . Reviewed good handwashing when working with infant, breast, nipples and how to protect the nipples with a deep latch. Encouraged understanding the benefits of skin to skin, responding to feeding cues, frequencies of feeding 8-12 times in 24 hours (approximately 2-3 hours), duration of feedings, milk production, intake/output feeding sheet and signs of adequate intake. Discussed stimulating with skin to skin, hand expressing colostrum, touch and talking to to encourage eating at the breast. Reviewed positioning and alignment, supporting breast, off-centered (asymmetrical latch) and leading with the chin with big open wide gape. Mother has the latched to the left breast in cross cradle but assessment shows infant resting with the nipple in the mouth. Parents express that this is what the has been doing with this feeding.Worked with assisting mom with infant to the left breast in football position and stayed latched optimally for 7 min with a good suck/ swallow ratio, then baby detached. Assisted mother with to the right breast with football positioning. Education given to mother of how to visualize suck/swallow ratios and drinking at the breast. Infant was able to maintain latch without discomfort to mother. Nipple care, comfort and healing with warm, wet washcloth to rinse breast and leave to air-dry. Colostrum may be left on nipples to dry but have clean hands when touching the nipple/breast. Resources used to facilitate learning were used from the visual handout/ tool/mom and baby guide. Mother voiced understanding responding to feeding cues, may need to stimulating approximately 2-3 hours from the start of the last feeding, calling for assistance if the infant does not latch or there discomfort . Reported to primary RN.
--- NOTE | 2021-12-18 15:45 | PM.OBPNVD ---
OB - PN: Subj Subjective Date/time seen: 12/18/21 15:45 Narrative: Pain OK. OB - PN: Obj Data Labs CBC & Chem 7: 12/18/21 04:12 12/17/21 06:28 Labs: Laboratory Results - last 24 hr 12/18/21 04:12 Hgb 9.5 L Hct 29.9 L OB - PN A/P Plan Comments: A: PPD#1, doing well. P: Routine care. Exam Psych: Other: AVSS ABD soft, nontender, fundus firm EXT nontender
[2021-12-18 16:00] VITALS: BP 116/72; PULSE 89; RESP 16; TEMP 36.4; O2SAT 100
[2021-12-18 19:20] VITALS: BP 105/64; PULSE 82; RESP 16; TEMP 36.7; O2SAT 99
[2021-12-19] MEDS: IBUPROFEN 600 MG TABLET PO ×2 (00:35→09:24)
[2021-12-19 07:30] VITALS: BP 109/72; PULSE 80; RESP 16; TEMP 37.1; O2SAT 100
--- NOTE | 2021-12-19 08:52 | PM.OBPNVD ---
OB - PN: Subj Subjective Date/time seen: 12/19/21 08:52 Narrative: Pain OK. Would like to go home. OB - PN: Obj Data Labs CBC & Chem 7: 12/18/21 04:12 12/17/21 06:28 OB - PN A/P Plan Comments: A: PPD#2, doing well. P: Home to f/u 6 weeks. Exam Psych: Other: AVSS ABD soft, nontender, fundus firm EXT nontender
[2021-12-19] MEDS: POLYSACCHARIDE IRON COMPLEX 150 MG CAPSULE PO (09:24)
[2021-12-19] MEDS: DOCUSATE SODIUM 100 MG CAPSULE PO (09:24)
[2021-12-19] MEDS: MULTIVIT/MIN/PREN/FOL AC/IRON TABLET 1 TAB PO (09:24)
--- NOTE | 2021-12-19 09:30 | PC.NURSE ---
Patient instructed on viewing the discharge video Mother & Baby Care, The First Two Weeks . Patient was given the opportunity and encouraged to ask questions. Patient verbalized understanding of information shared and has been given the mother/baby guide for home reference.
--- NOTE | 2021-12-19 10:13 | PC.NURSE ---
[phone] [id number] Consulted with patient to assess needs related to . Mother led conversation with her experience with feeding baby so far. Mother works well with her infant. Infant has had appropriate feedings in the past 24 hours and meets the outcomes for weight, output and jaundice. Mother states she feels confident to continue effectively her infant at home. Reviewed production of human milk, transition of milk, signs of adequate intake and engorgement prevention/relief and when to call the care provider using the mom and baby guide. Reviewed community resources and outpatient services as listed in the mom and baby guide/[facility] website. Reinforced watching for feeding cues with responsive feeding and how to stimulate infant to initiate feeding three hours from the start of the last feeding. Mother voiced understanding of information shared. Reported to primary RN.
--- NOTE | 2021-12-19 12:30 | PC.NURSE ---
Patient declines follow up appointment here at the [place]. She already has a follow up tomorrow with her screw machine adjuster automatic at 9:00 am. Pre-eclampsia handout reviewed.
== END 2021-12-19 12:58 | disposition home or self-care (01) | DRG 560 ==
LOC: ANHLDR 21:04 → ANHOB2 12-18 01:07
PROVIDERS: Admitting Provider Obstetrics & Gynecology; Visit Provider Obstetrics & Gynecology
DX: O13.4 Gestational [pregnancy-induced] hypertension without significant proteinuria, complicating childbirth (principal); Z37.0 Single live birth; Z3A.38 38 weeks gestation of pregnancy; O36.8330 Maternal care for abnormalities of the fetal heart rate or rhythm, third trimester, not applicable or unspecified; O70.0 First degree perineal laceration during delivery; O99.892 Other specified diseases and conditions complicating childbirth; Z87.59 Personal history of other complications of pregnancy, childbirth and the puerperium; O69.81X0 Labor and delivery complicated by cord around neck, without compression, not applicable or unspecified; O99.02 Anemia complicating childbirth; D64.9 Anemia, unspecified; M41.9 Scoliosis, unspecified
CPT/HCPCS: 36415; 80053; 84550; 85014; 85018; 85025; 86592; 86850; 86900; 86901; 88307; A9270; J0131; J2590; J2795; J7030; J7120

== ENCOUNTER 2022-07-15 15:25 | Outpatient (CLI) | payer OTHER, SELFPAY ==
--- NOTE | 2022-07-15 | ECG_ITS ---
Measurements Intervals [place] Rate: 70 P: 67 OK: 147 QRS: 4 QRSD: 95 T: 18 QT: 418 QTc: 452 Interpretive Statements SINUS RHYTHM WITH SINUS ARRHYTHMIA LOW QRS VOLTAGE IN PRECORDIAL LEADS [QRS DEFLECTION < 1.0 mV IN CHEST LEADS] BORDERLINE ECG NO PREVIOUS ECG AVAILABLE FOR COMPARISON Electronically Signed On 07-15-2022 17:10:27 CDT by Lukas Bird M.D.
== END 2022-07-15 15:26 | disposition home or self-care (01) ==
PROVIDERS: Visit Provider Obstetrics & Gynecology
DX: R00.2 Palpitations (principal)
CPT/HCPCS: 93005

== ENCOUNTER 2022-08-27 18:53 | Emergency (ER) | payer OTHER, SELFPAY ==
[2022-08-27 19:06] VITALS: BP 125/72; PULSE 110; RESP 18; TEMP 38.5; O2SAT 100
--- NOTE | 2022-08-27 19:25 | ED.GENADULT ---
HPI - General Adult General Chief complaint: Ear Stated complaint: Headache/Ear Pain Time Seen by Provider: 08/27/22 19:25 Source: patient, RN notes reviewed and old records reviewed Mode of arrival: ambulatory Limitations: no limitations History of Present Illness HPI narrative: 21-year-old female who presents to [facility] with complaints of headache with fevers up to 101F since yesterday at noon with bilateral ear pain and scratchy throat.Patient reports that she has been taking Tylenol and Ibuprofen for her symptoms. Patient reports that she has not had Covid vaccinations or flu shot. Patient denies any cough or congestion, denies any shortness of breath or any wheezing. MD complaint: ear pain, fevers, scratchy throat, headache Onset (ago): day(s) (2) Severity scale (1-10): 8 Treatments prior to arrival: NSAID and other (Tylenol) Related Data Home Medications Medication Instructions Recorded Confirmed vitamins no.144-folic 1 tablet PO DAILY 08/12/20 12/17/21 acid 400 mcg chewable tablet () Allergies Allergy/AdvReac Type Severity Reaction Status Date / Time No Known Allergies Allergy Verified 12/07/21 13:24 Review of Systems Review of Systems: CONSTITUTIONAL: reports malaise, chills, sweats, or fever. EYES: Denies visual changes, redness, or discharge. ENT: Reports minimal rhinorrhea, congestion, no sinus pain, otalgia bilaterally and sore throat. CARDIOVASCULAR: Denies chest pain, palpitations, or edema. RESPIRATORY: No reported cough.? Denies dyspnea. GASTROINTESTINAL: Denies abdominal pain, nausea, vomiting, diarrhea SKIN: Denies rash or itching. MUSCULOSKELETAL: Denies myalgia. NEUROLOGIC: Reports headache. All systems reviewed & are unremarkable except as noted in HPI and below PMFSH Past Medical History Medical History (Updated 09/01/22 @ 11:24 by Stephanie Allan NP) Anemia Asthma as child History of pelvic inflammatory disease PIH ( induced hypertension) Post depression Preeclampsia and not yet delivered Scoliosis Surgical History Surgical History (Updated 09/01/22 @ 11:22 by Stephanie Allan NP) History of appendectomy History of foot surgery Family History Family History Sibling Asthma Sibling ADHD Asthma Father Hypertension Social History Social History Smoking status: Never smoker Substance use: never Spiritual care concerns: No Comments At time of signature, agree with nursing past medical, surgical, social and family history. There is no relevant family history pertinent to the presenting complaint Exam Narrative: GENERAL: Well-appearing, well-nourished, and in no acute distress. HEAD: Normocephalic EYES: PERRLA, conjunctivae clear ENT: Nares clear, turbinates edematous and erythematous, clear discharge. Mucous membranes moist. TM pearly sam with dull light reflex bilaterally; no tragal tenderness. Oropharynx erythematous without lesions. Tonsils not enlarged and without exudate, no drooling, no hoarseness, no trismus, uvula midline.some post nasal drainage. NECK: Supple. No lymphadenopathy CHEST: Clear to auscultation, breath sounds equal. No wheezing, rhonchi, rales, or stridor. No respiratory distress, speaks in full sentences.SAO2 100% on room air HEART: Regular rate and rhythm. No murmur heard. SKIN: Warm, dry, no rash. NEURO: Alert and oriented x3. PSYCH: Normal mood and affect Course Course Emergency Course: Patient is aware of diagnosis, understands and agrees to treatment plan.? Anticipatory guidance given.? Patient agrees to follow-up as directed and is aware of reasons to seek care at the emergency department. Portions of this record may have been created with voice recognition software Level of Care: Express Care Visit Vital Signs Vital signs: Celina
== END 2022-08-27 19:55 | disposition home or self-care (01) ==
PROVIDERS: Emergency Provider Registered Nurse
DX: J10.1 Influenza due to other identified influenza virus with other respiratory manifestations (principal); M41.9 Scoliosis, unspecified
CPT/HCPCS: 87804; 99213; G0463

== ENCOUNTER 2023-11-10 00:17 | Day surgery (SDC) | payer OTHER, SELFPAY ==
[2023-11-06 08:44] VITALS: BMI 29.1
--- NOTE | 2023-11-06 08:49 | PC.NURSE ---
Report to the Outpatient Waiting Room, entrance under the green pavilion located off [facility], at time 1100 on date 11/10/23. Planned Procedure Time: 1300. Time changes happen often and if your time is changed the preop area will call you the afternoon before. - You and your visitor will be asked to self-screen and do not enter if you have any COVID symptoms. - A mask is optional within the hospital at this time. Patients may have clear liquids (water, carbonated beverages, clear teas, apple juice) until 3 hours prior to surgery with a maximum of 20 ounces. - No food from midnight until time of surgery Take the following medications with a SIP of water the morning of surgery: N/A DO NOT STOP ANY OF YOUR OTHER PRESCRIPTION MEDICATIONS PRIOR TO SURGERY ?EXCEPT THE FOLLOWING Medications to discontinue per physician: N/A Date to take last dose: N/A Please no make-up, nail hebrew, hairspray, perfume, deodorant, or body powder the day of surgery. No jewelry (including any body piercings) or valuables the day of surgery, leave them at home. Please take a shower or bath the night before, or the morning of, surgery with an antibacterial soap. Wear comfortable, loose fitting clothing. - Jewelry must be removed prior to entering the operating room. Rings and piercings that are not removed may be cut off. - The hospital will not accept responsibility for valuables. - Please leave all valuables, including medications, at home the day of surgery. If you are going home after surgery, a licensed power screwdriver operator must drive you home. - NO public transportation without another adult if you receive anesthesia. - We recommend that an adult stay with you for 24 hours following discharge. - We also recommend that you do not drive, make important decision, drink alcoholic beverages, or take any drugs that were not prescribed by your health care provider for at least 24 hours after your discharge time. Follow any additional instructions given to you from your surgeon. If you or anyone in your household have experienced Covid symptoms in the past week, please notify your surgeon or the nurse liaison at the phone number below for possible testing. Telephone instructions given to PT Guera HOLMAN and asked if any additional questions and then verbalized understanding. Patient advised to call surgeon office or pre surgery nurse liaison [phone] if any additional questions.
--- NOTE | 2023-11-09 17:43 | PM.IMHP ---
H&P: HPI History of Present Illness Date/Time: 11/09/23 17:43 Chief Complaint: Recurrent tonsillitis adenoid hypertrophy snoring Narrative: planned procedure Review of Systems Review of Systems: All systems reviewed & are unremarkable except as noted in HPI and below [facility] Past Medical History Medical History Anemia Asthma as child History of pelvic inflammatory disease PIH ( induced hypertension) Post depression Preeclampsia and not yet delivered Scoliosis Surgical History Surgical History History of appendectomy History of foot surgery Family History Family History (Updated 08/31/23 @ 10:24 by Olivia Sanford) Sibling Asthma Sibling ADHD Asthma Father Hypertension Grandparent Diabetes mellitus Heart disease Social History Social History (Updated 08/31/23 @ 10:25 by Olivia Sanford) Social History: Caffeine- 2 cups daily Smoking status: Never smoker Alcohol intake: never Alcohol use details: occasionally Substance use: never Substance use type: does not use Lack of Transportation: No Lack of Food: Never True Current Housing: I Have Housing Concerned About Future Housing: No Difficulty Paying Gas/Electric Bills: No Difficulty Paying for Meds: No Currently Unemployed: No Education: High School Diploma/GED Difficulty w/ Childcare or Family Care: No Living arrangements: with family Occupation/Education: occupation 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 Gender identity (if verbalized by the patient): Female Spiritual care concerns: No Agree to blood products: Yes Meds Home Medications and Allergies Home Medications Medication Instructions Recorded Confirmed Type No Home Medications 11/06/23 11/06/23 History Allergies Allergy/AdvReac Type Severity Reaction Status Date / Time No Known Allergies Allergy Verified 11/06/23 08:43 Exam Narrative: large adenoids chronic appearing tonsils Assessment and Plan Assessment and plan (1) Recurrent tonsillitis: Code(s): J03.91 - Acute recurrent tonsillitis, unspecified Status: Acute Assessment and Plan: tonsillectomy and adenoidectomy.? Risks were discussed including bleeding infection damage to surrounding structures need for further procedures damage to any structure of the clavicles by myself damage to any structure during the induction and maintenance of anesthesia including vocal cord paralysis.? Severe pain.? Time off work time off school.? Risk of bleeding after surgery 5%.? Change in taste change in swallow which could be permanent.? Patient voiced understanding of these risks and agreed. (2) Dysphagia: Code(s): R13.10 - Dysphagia, unspecified Status: Acute (3) Tonsillar hypertrophy: Code(s): J35.1 - Hypertrophy of tonsils Status: Acute (4) Adenoid hypertrophy: Code(s): J35.2 - Hypertrophy of adenoids Status: Acute (5) Snoring: Code(s): R06.83 - Snoring Status: Acute
[2023-11-10] VITALS (11 sets, daily range): BP systolic 98–115; BP diastolic 59–81; PULSE 56–78; RESP 12–19; TEMP 36.7–36.8; O2SAT 96–100
--- NOTE | 2023-11-10 07:16 | WPDHPUPDATE1 ---
History and Physical Update Update Date/Time: 11/10/23 07:16 History and Physical has been reviewed, including an updated exam of the patient. There are NO changes in the patient's condition. Risks, benefits, and alternatives have been discussed and questions answered. Patient agrees to proceed with procedure.
[2023-11-10] MEDS: LACTATED RINGERS 1,000 ML 30 ML IV CONT ×2 (11:40→13:11)
[2023-11-10] MEDS: ACETAMINOPHEN 500 MG TABLET 1000 MG PO (11:46)
[2023-11-10] MEDS: SCOPOLAMINE 1 MG PATCH 1 PATCH TRANSDERM (12:09)
--- NOTE | 2023-11-10 13:23 | P.OP_ITS ---
Procedure Note - Detailed Date of Procedure 11/10/23 Pre-op Diagnosis Adenoid Hypertrophy, Recurrent Tonsillitis Post-op Diagnosis Same Procedure Performed Tonsillectomy Surgeon Marcos Mcgee MD Anesthesia General Indications see above Findings very large scarred in tonsils. Description of Procedure Patient identified consent verified preop. Patient brought to the operating room. Time-out performed. General anesthesia induced endotracheal tube secured. Patient prepped draped positioned 2nd procedure a procedure confirmed 2nd time-out performed. McIvor mouth gag inserted rule very large tonsils. The y were removed in extracapsular plane using Bovie electrocautery setting of 8. Any bleeding was controlled with bipolar electrocautery setting of 8 in Bovie suction electrocautery setting of 10. In-between tonsils McIvor mouth gag was lowered to reveal no further bleeding. Red rubber catheters were inserted adenoid pad viewed non-existent. McIvor mouth gag lowered for 30 seconds and reopened. No further bleeding. Care the patient given Anesthesiology. I performed all dictated portions of procedure. No complications. Patient taken to PACU. Total blood loss 15 cc. Estimated Blood Loss 15 Drains No Packing No Pathology Yes Complications No immediate complications Condition Stable Disposition PACU [facility] Billing Surgery - Charge Forward: Surgery Billing
[2023-11-10] MEDS: fentaNYL CITRATE INJ (*CRX) 100 MCG/2 ML VIAL 25 MCG IV PUSH ×4 (13:49→14:20)
--- NOTE | 2023-11-10 13:54 | SUR.PHASEI ---
Face tent removed @ 6105.
[2023-11-10] MEDS: oxyCODONE HCL (*CRX) 5 MG TAB IR PO (15:35)
--- NOTE | 2023-11-11 09:26 | WPDANESEPPF ---
Anes - Initial Pre Proc Eval Procedure: Operation Date: 11/10/23 13:00 Proposed Procedures p Tonsillectomy And Adenoidectomy - Marcos Mcgee MD Date/Time: 11/11/23 09:26 Surgeon: Marcos Mcgee MD Pre Op Diagnosis: Adenoid Hypertrophy, Recurrent Tonsillitis Patient Data Age: 22 Gender: F Height: 1.65 m Weight: 80.5 kg Last Vital Signs Temp 36.8 C 11/10/23 13:11 Pulse 73 11/10/23 16:00 Resp 16 11/10/23 16:00 BP 107/75 11/10/23 16:00 Pulse Ox 97 11/10/23 14:40 O2 Del Method Room Air 11/10/23 16:00 O2 Flow Rate 10 11/10/23 13:40 Allergies Allergy/AdvReac Type Severity Reaction Status Date / Time No Known Allergies Allergy Verified 11/10/23 11:45 Home Medications Medication Instructions Recorded Confirmed Type oxycodone 5 mg tablet 5 mg PO Q6-8H PRN pain #30 tabs 11/10/23 Rx Patient hx anesthesia problems: none Family hx anesthesia problems: none Results Review: All pre-operative results and documents have been reviewed as part of the pre-operative evaluation. [facility] Past Medical History Medical History Anemia Asthma as child History of pelvic inflammatory disease PIH ( induced hypertension) Post depression Preeclampsia and not yet delivered Scoliosis Surgical History Surgical History History of appendectomy History of foot surgery Family History Family History Sibling Asthma Sibling ADHD Asthma Father Hypertension Grandparent Diabetes mellitus Heart disease Social History Social History Social History: Caffeine- 2 cups daily Smoking status: Never smoker Alcohol intake: never Alcohol use details: occasionally Substance use: never Substance use type: does not use Lack of Transportation: No Lack of Food: Never True Current Housing: I Have Housing Concerned About Future Housing: No Difficulty Paying Gas/Electric Bills: No Difficulty Paying for Meds: No Currently Unemployed: No Education: High School Diploma/GED Difficulty w/ Childcare or Family Care: No Living arrangements: with family Occupation/Education: occupation 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 Gender identity (if verbalized by the patient): Female Spiritual care concerns: No Agree to blood products: Yes Anes - Eval Final PreProcedure Day of Procedure 11/11/23 09:26 Patient weight: overweight Heart: regular rate and rhythm Lungs: clear to auscultation Airway: Mallampati scale class II Neurological: alert and oriented Last oral intake: >/= 8 hours ASA classification: II Emergent: no Anesthetic plan: proceed Anesthesia type and monitoring: general ETT and standard monitoring Results Review: All pre-operative results and documents have been reviewed as part of the pre-operative evaluation. Informed Consent: The patient's anesthetic plan and its attendant risks and benefits were discussed with the patient/family/POA. Questions were solicited and answers provided to the satisfaction of the patient/family/POA.
== END 2023-11-10 16:10 | disposition home or self-care (01) ==
PROVIDERS: PCP Nurse Practitioner Family; Visit Provider Otolaryngology
PROC: (CPT 42826; principal; 2023-11-10 13:00)
DX: J35.01 Chronic tonsillitis (principal)
CPT/HCPCS: 42826; 88304; A9270; J0330; J1100; J2250; J2405; J2704; J3010; J7120

== ENCOUNTER 2025-03-21 14:36 | Outpatient (CLI) | payer OTHER, SELFPAY ==
[2025-03-21 15:14] LABS: Basophils Absolute Auto 0.1 K/mm3 (0.0-0.1); Basophils Percent Auto 0.8 % (0.2-1.2); Eosinophils Absolute Auto 0.1 K/mm3 (0-0.3); Hematocrit 36.7 % (37.0-47.0); Hemoglobin 11.7 g/dL (12.0-15.0); Immature Granulocyte Absolute 0.03 K/mm3 (0.00-0.031); Immature Granulocyte Percent A 0.4 % (0-0.5); Lymphocytes Absolute Auto 1.89 K/mm3 (0.9-3.2); Lymphocytes Percent Auto 26.4 % (18.3-44.2); Mean Corpuscular HGB Conc 31.9 g/dl (32-36); Mean Corpuscular Hemoglobin 28.3 pg (26-34); Mean Corpuscular Volume 88.6 fl (80-100); Mean Platelet Volume 11.1 fl (7.4-10.4); Monocytes Absolute Auto 0.6 K/mm3 (0.1-0.6); Monocytes Percent Auto 7.7 % (2.6-8.5); Neutrophils Absolute Auto 4.6 K/mm3 (1.3-6.7); Neutrophils Percent Auto 63.7 % (45.5-73.1); Platelet Count Result 212 k/mm3 (150-375); Red Blood Count 4.14 M/mm3 (4.2-5.4); Red Cell Distribution Width 13.1 % (11.5-14.5); White Blood Count 7.2 K/mm3 (4.5-10.0)
[2025-03-21 15:16] LABS: Add Urine Microscopic? NO; Appearance Urine Clear (Clear); Bilirubin Urine Negative (Negative); Blood Urine Negative (Negative); Color Urine Yellow (Yellow); Glucose Urine UA Negative (Negative); Ketones Urine 1+ mg/dL (Negative); Leukocyte Esterase Ur Negative LEU/UL (Negative); Nitrate Urine Negative (Negative); Protein Urine Negative (Negative); Specific Grav Ur 1.018 (1.001-1.035); Urobilinogen Urine 0.2 mg/dL (<2.0); pH Urine 5.5 (5.0-9.0)
[2025-03-21 15:24] LABS: Alanine Aminotransferase 279 U/L (6-35); Albumin Level 4.4 g/dL (3.5-5.1); Alkaline Phosphatase 125 U/L (38-126); Anion Gap 11 mmol/L (4-12); Aspartate Amino Transferase 229 U/L (14-36); Bilirubin,Total 0.7 mg/dL (0.2-1.3); Blood Urea Nitrogen 9 mg/dL (7-17); Calcium 9.2 mg/dL (8.4-10.2); Carbon Dioxide 26 mmol/L (22-30); Chloride 100 mmol/L (98-107); Estimated Glomerular Filt Rate > 60; Glucose 84 mg/dL (65-110); Lipase 89 U/L (23-300); Potassium 3.7 mmol/L (3.4-5.0); Sodium 137 mmol/L (137-145); Total Protein 7.7 g/dL (6.3-8.2)
--- OUTSIDE RECORDS SUMMARY | 2025-03-21 16:04 | XMS_ITS | Clinical Summary ---
Author Organization [facility] Address [address] [place] [address] Care Team Providers Care Backrest Assembler Name Role Phone Jayleen Ardon NP Primary Care Provider [phone] Allergies No known active allergies Medications fluconazole (DIFLUCAN) 150 mg tabletIndicatio ns:Prophylaxis, Medical Take 1 tablet (150 mg total) by mouth daily Take one tab now. Repeat in 7 days if symptoms persist. 2 tablet 10/06/2023 Active HYDROcodone-nora taminophen (NORCO) 5-325 mg per tabletIndicatio ns:Pain Take 1 tablet by mouth every 6 (six) hours as needed for pain 6 tablet 02/23/2024 Active Active Problems Problem Noted Date Diagnosed Date Pain associated with accessory navicular bone of foot 10/15/2012 Immunizations Immunization Administration Dates Next Due DTaP 04/28/2007, 5,07/14/2002,04/18,02/08/2002,01/29/2002 DTaP / Hep B / IPV 01/21/2005 DTaP 5 Pertussis 06/18/2015 HPV, Quadrivalent 05/06/2014 Hep A, Ped Unspecified 12/13/2009 Hep A, Pediatric 08/29/2011 Hep B, Adolescent or Pediatric 07/14/2002,2001,2001 HiB 01/21/2005, 2,04/18/2002,02/08 IPV 04/28/2007, 2,02/08/2002,01/29 Influenza, Split 10/24/2010 Influenza, Trivalent, Preser vative Free, Intramuscular 08/29/2011 Influenza, Unspecified 10/28/2022(Deferr ed: Patient Refused),06/12/2022(Deferred: Patient Refused),12/18/2020(Deferred: Patient Refused),10/12/2019(Deferred: Patient Refused),08/26/2003 MMR 06/18/2005 MMRV 04/28/2007 Meningococcal B, OMV (Bexsero) 12/10/2018,2017 Meningococcal MCV4P (Menactra) 05/25/2018 Pneumococcal Conjugate 7-Valent 02/08/2005,04/18,01/29/2002 Varicella 06/18/2005 Surgical History Surgery Date Site/Laterality Comments APPENDECTOMY FOOT SURGERY Bilateral L- 2010, R- 2011 Medical History Medical History Date Comments Appendicitis Family History Medical History Relation Name Comments No Known Problems Brother 1 No Known Problems Brother 2 No Known Problems Father Heart disease Maternal Grandfather Heart attack Maternal Great-Grandmother No Known Problems Mother Heart defect Paternal Grandfather Bone cancer Paternal Great-Grandfather Lung cancer Paternal Great-Grandfather Prostate cancer Paternal Great-Grandfather Hypertension Sister Relation Name Status Comments Brother 1 Alive Brother 2 Alive Father Alive Maternal Grandfather Maternal Great-Grandmother Mother Alive Paternal Grandfather Paternal Great-Grandfather Sister Alive Social History Tobacco Use Types Packs/Day Years Used Date Smoking Tobacco: Never Smokeless Tobacco: Never AUDIT-C Answer Date Recorded Q1: How often do you have a drink containing alc ohol? Never 10/28/2022 Average Number of Drinks Not on file 023 Frequency of Binge Drinking Not on file 10/12 PHQ-2 Answer Date Recorded PHQ-2 Total Score (If total score is 3 or more points, staff should administer the PHQ-9) 0 10/28/2022 Exercise Vital Sign Answer Date Recorde d On average, how many days pe r week do you engage in moderate to strenuous exercise (like a brisk walk)? 5 days 10/28/2022 On average, how many minutes do you engage in exercise at this level? 30 min 10/28/2022 Personal Safety Answer Date Recorded Have you ever been in or are you currently in a harmful physical or emotional relationship or is someone making you feel afraid or unsafe? 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 Gender Identity Not on file Sexual Orientation Not on file Obstetrics History Para Term AB IAB SAB Ectopic Multiple Livin g Live Births 2 1 1 1 1 Date Outcome GA Total Labor Labor/2nd/3rd Weight Sex Type Anes PTL Sheba A1 A5 Name Clin 2019 35w 0d 0h 09m 0h 09m 2.045 kg (4 lb 8.1 oz) M Vag-S pont Epidur al Y Livin g 3 6 ARMBRU STER,B ALLY BOY SUSSY love MD Complications:None Delivery Location:[facility] ([address]) Comments:Not vigorous at , required PPV Comments First complicated by pre-eclampsia with severe features Last Filed Vital Signs Vital Sign Reading Time Taken Comments Blood Pressure 113/65 02/23/2024 10:30 AM CDT Pulse 78 02/23/2024 10:30 AM CDT Temperature 36.8 C (98.2 F) 02/22/2024 10:11 PM CDT Respiratory Rate 18 02/23/2024 3:37 AM CDT Oxygen Saturation 99% 02/23/2024 10:30 AM CDT Inhaled Oxygen Concentration - - Weight 79.4 kg (175 lb 0.7 oz) 02/22/2024 10:11 PM CDT Height 165.1 cm (5' 5) 02/22/2024 10:11 PM CDT Body Mass Index 29.13 02/22/2024 10:11 PM CDT Plan of Treatment Health Maintenance Due Date Last Done Comments Cervical Cancer Screening 2001 Hepatitis C Screening 2001 HPV Vaccines (2 - 2-dose series) 11/06/2014 05/06/20 14 Regular Well Visit/Exam 18-64 2019 Depression Screening 10/28/2023 10/28/2022, 12/19/19 21 Influenza Vaccine (Season Ended) 2025 08/13/2019, 07/12/2019, 08/29/2011, Additional history exists DTaP/Tdap/Td Vaccine (8 - Td or Tdap) 03/04/2029 03/04/2019, 06/18/2015, 04/28/2007, Additional history exists Hepatitis B Screening Completed 01/21/2005 , 07/14/2002, 01/10/2002, Additional history exists Pneumococcal vaccine <65 Completed 005, 04/18/2002, 01/29/2002 Meningococcal B Vaccine Completed 12/10/2018, 05/25 Varicella Vaccines Completed 04/08/2019, 0 03/04/2019, 04/28/2007, Additional history exists Insurance [facility] MEDICAID IDPA Care Teams Backrest Assembler Relationship Specialty Start Date End Date Jayleen Ardon NP PCP - General Nurse Practitioner 08/03/23
--- OUTSIDE RECORDS SUMMARY | 2025-03-21 16:04 | XMS_ITS | Referral Summary ---
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
== END 2025-03-21 14:37 | disposition home or self-care (01) ==
LOC: ANHLAB 14:37
PROVIDERS: PCP Nurse Practitioner Family; Visit Provider Surgery
DX: K80.00 Calculus of gallbladder with acute cholecystitis without obstruction (principal)
CPT/HCPCS: 36415; 80053; 81003; 83690; 85025

== ENCOUNTER 2025-03-23 02:10 | Day surgery (SDC) | payer OTHER, SELFPAY ==
[2025-03-22 10:17] VITALS: BMI 27.8
--- NOTE | 2025-03-22 10:25 | PC.NURSE ---
Report to the Outpatient Waiting Room, entrance under the green pavilion located off [facility], at time _0900_ on date _03/23/25__. Planned Procedure Time: __1100_.? Time changes happen often and if your time is changed the preop area will call you the afternoon before. - You and your visitor will be asked to self-screen and do not enter if you have any COVID symptoms. Please call surgeon if you need to reschedule. - A mask is optional within the hospital at this time. Patients may have clear liquids (water, carbonated beverages, clear teas, apple juice) until 3 hours prior to surgery with a maximum of 20 ounces. - No food from midnight until time of surgery and no smoking, or chewing tobacco (or any form of nicotine). No chewing gum, candy or mints. - Infants may have breast milk until 4 hours before surgery, infant formula 6 hours prior to surgery. - Children will be allowed to drink immediately following surgery.? If applicable, please bring a bottle or sippy cup to assist with drinking. Juice, water, soda, and popsicles are readily available.? For infants on formula, please bring formula the day of surgery.? Pacifiers are allowed. Take only the following medications with a SIP of water on the morning of surgery: ___ESCITALOPRAM, PAIN AND NAUSEA MEDICATION IF NEEDED DO NOT STOP ANY OF YOUR OTHER PRESCRIPTION MEDICATIONS PRIOR TO SURGERY EXCEPT THE FOLLOWING Hold all vitamins and supplements for 3 days per anesthesiologist. Medications to discontinue per physician Date to take last dose Please no make-up, nail south korean, hairspray, perfume, deodorant, or body powder the day of surgery.? No jewelry (including any body piercings) or valuables the day of surgery, leave them at home.? Please take a shower or bath the night before, or the morning of, surgery with HIBICLENS antibacterial soap.? Wear comfortable, loose fitting clothing.? Children are encouraged to wear pajamas. - Jewelry must be removed prior to entering the operating room.? Rings and piercings that are not removed may be cut off. - The hospital will not accept responsibility for valuables.? - Please leave all valuables, including medications, at home the day of surgery. If you are going home after surgery, a licensed lumber stacker driver must drive you home.? - NO public transportation without another adult if you receive anesthesia. - We recommend that an adult stay with you for 24 hours following discharge. - We also recommend that you do not drive, make important decision, drink alcoholic beverages, or take any drugs that were not prescribed by your health care provider for at least 24 hours after your discharge time. For Pediatric surgeries, we recommend two adults accompany the child home. Follow any additional instructions given to you from your surgeon. Telephone instructions given to _PATIENT__and asked if any additional questions and then verbalized understanding. Patient advised to call surgeon office or pre surgery nurse liaison [phone] if any additional questions.
[2025-03-23] VITALS (11 sets, daily range): BP systolic 106–113; BP diastolic 52–73; PULSE 63–75; RESP 10–18; TEMP 36.1–36.8; O2SAT 98–100; BMI 27.4
--- OUTSIDE RECORDS SUMMARY | 2025-03-23 02:13 | XMS_ITS | Clinical Summary ---
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
--- OUTSIDE RECORDS SUMMARY | 2025-03-23 02:13 | XMS_ITS | Referral Summary ---
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
[2025-03-23] MEDS: KETOROLAC 15 MG/ML VIAL (*BKC) IV PUSH (09:20)
[2025-03-23] MEDS: ACETAMINOPHEN 500 MG TABLET 1000 MG PO (09:20)
[2025-03-23] MEDS: LACTATED RINGERS 1,000 ML 30 ML IV CONT ×2 (09:20→11:54)
[2025-03-23 09:30] LABS: BEDSIDEPREGUCG Negative (Negative)
[2025-03-23 09:32] LABS: Alanine Aminotransferase 147 U/L (6-35); Albumin Level 4.3 g/dL (3.5-5.1); Alkaline Phosphatase 93 U/L (38-126); Amylase 59 U/L (30-110); Aspartate Amino Transferase 59 U/L (14-36); Bilirubin,Total 0.4 mg/dL (0.2-1.3); Total Protein 7.5 g/dL (6.3-8.2)
--- NOTE | 2025-03-23 09:42 | P.PNAN_ITS ---
Anes - Initial Pre Proc Eval Procedure: Operation Date: 03/23/25 11:00 Proposed Procedures p Laparoscopic Cholecystectomy - Concha Taylor MD Date/Time: 03/23/25 09:42 Surgeon: Concha Taylor MD Pre Op Diagnosis: acute cholecystitis Patient Data Age: 24 Gender: F Height: 1.65 m Weight: 74.9 kg Last Vital Signs Temp 36.8 C 03/23/25 08:50 Pulse 69 03/23/25 08:50 Resp 14 03/23/25 08:50 BP 111/68 03/23/25 08:50 Pulse Ox 100 03/23/25 08:50 O2 Del Method Room Air 03/23/25 08:50 Allergies Allergy/AdvReac Type Severity Reaction Status Date / Time No Known Allergies Allergy Verified 03/23/25 09:25 Home Medications ?Medication ?Instructions ?Recorded ?Confirmed ?Type oxycodone 5 mg tablet 5 mg PO Q6-8H PRN pain #30 tabs 11/10/23 03/22/25 Rx escitalopram oxalate 5 mg tablet 5 mg PO DAILY 03/21/25 03/22/25 History (Lexapro) ondansetron HCl 4 mg tablet 4 mg PO Q8H PRN nausea and vomiting 03/21/25 03/22/25 History Laboratory Tests 03/23/25 03/23/25 09:07 09:28 Total Bilirubin 0.4 mg/dL (0.2-1.3) Direct Bilirubin 0.0 mg/dL (0-0.3) AST 59 H U/L (14-36) ALT 147 H U/L (6-35) Alkaline Phosphatase 93 U/L (38-126) Total Protein 7.5 g/dL (6.3-8.2) Albumin 4.3 g/dL (3.5-5.1) Amylase 59 U/L (30-110) POC Urine HCG, Qual Negative (Negative) Patient hx anesthesia problems: none Family hx anesthesia problems: none Results Review: All pre-operative results and documents have been reviewed as part of the pre- operative evaluation. 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 Scoliosis PIH ( induced hypertension) Preeclampsia History of pelvic inflammatory disease Surgical History Surgical History Hx of tonsillectomy 2023 History of foot surgery History of appendectomy 2013 Family History Family History Sibling Asthma Hypertension Depression Sibling ADHD Asthma Father Hypertension Alcoholism Depression Heart disease Grandparent Diabetes mellitus Heart disease Hypertension Cerebrovascular accident Social History Social History Social History: Caffeine- 2 cups daily Smoking status: Never smoker Alcohol intake: former Alcohol use details: occasionally Substance use: never Substance use type: does not use Do You Feel Safe in your Home?: Yes Lack of Transportation: No Lack of Food: Never True Current Housing: I Have Housing Concerned About Future Housing: No Difficulty Paying Gas/Electric Bills: No Difficulty Paying for Meds: No Currently Unemployed: No Education: High School Diploma/GED Difficulty w/ Childcare or Family Care: No Living arrangements: with family Occupation/Education: occupation 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[employer] Gender identity (if verbalized by the patient): Female Spiritual care concerns: No Agree to blood products: Yes Anes - Eval Final PreProcedure Day of Procedure 03/23/25 09:42 Patient weight: overweight Heart: regular rate and rhythm Lungs: clear to auscultation Airway: Mallampati scale class II Neurological: alert and oriented Last oral intake: >/= 8 hours ASA classification: II Emergent: no Anesthetic plan: proceed Anesthesia type and monitoring: general ETT and standard monitoring Results Review: All pre-operative results and documents have been reviewed as part of the pre- operative evaluation. Informed Consent: The patient's anesthetic plan and its attendant risks and benefits were discussed with the patient/family/POA. Questions were solicited and answers provided to the satisfaction of the patient/family/POA.
--- NOTE | 2025-03-23 10:57 | WPDHPUPDATE1 ---
History and Physical Update Update Date/Time: 03/23/25 10:57 History and Physical has been reviewed, including an updated exam of the patient. There are NO changes in the patient's condition. Risks, benefits, and alternatives have been discussed and questions answered. Patient agrees to proceed with procedure.
[2025-03-23] MEDS: ceFAZolin 2 GM/D5W 50 ML 2 GM/50 ML BAG IVPB (11:06)
[2025-03-23] MEDS: BUPIVACAINE/EPINEPHRINE 0.5% 50 ML VIAL 30 ML INFILTRATE (11:27)
--- NOTE | 2025-03-23 11:28 | S_PTH ---
PATIENT: Glenn Romero LOC: [facility] U#:[id number] AGE/SX: 24/F ROOM: RE03/23/[address]: Concha Taylor MD : 2000 BED: DIS: 03/23/2025 SPEC #: [id number] RECD: 03/23/25 13:59 STATUS: KACEY REGael #: [id number] ROSA: 03/23/25 11:[address]: Concha Taylor DEPT: [facility] Surgical RECD BY: Roseline Rea ENTERED: 03/23/25 13:59 SP TYPE: Surgical OTHR DR: Jayleen Ardon, MEDICAL PHYSICS TEACHER Tissues: A - Gallbladder Procedures: Hematoxylin and Eosin Stain Gross and Microscopic Level 3
--- NOTE | 2025-03-23 11:58 | P.OP_ITS ---
Procedure Note - Detailed Date of Procedure 03/23/25 Pre-op Diagnosis acute cholecystitis Post-op Diagnosis Same Procedure Performed Laparoscopic cholecystectomy Surgeon Concha Taylor MD Anesthesia General Indications 24-year-old female presenting to the office complaining severe upper abdominal pain, poor appetite, nausea bloating. Workup, including imaging, consistent with acute cholecystitis, cholelithiasis. Findings Moderate cholecystitis Description of Procedure The patient was taken to the operating room placed in the supine position. After adequate induction of general anesthesia, the patient was prepped and draped in normal sterile fashion. A time-out was then performed to verify the patient's identity as well as the procedure being performed. I then made a 5 mm incision in the infraumbilical region. Through this, a Veress needle was placed into the peritoneal cavity and CO2 gas was then insufflated. After adequate pneumoperitoneum was achieved, the Veress needle was removed and a 5 mm optiview trocar was placed through this incision under direct visualization. I then placed the laparoscope through this trocar site and under direct visualization placed a further 12 mm subxiphoid port as well as 2 additional 5 mm ports in the right upper abdomen. The gallbladder was then identified and was noted to be moderately inflamed, distended, and full of gallstones. I was able to place a grasper at the dome of the gallbladder and this was retracted anterior and cephalad up over the liver. A 2nd retractor was then placed at the infundibulum and retracted laterally, this allowed visualization of the triangle of Calot. I then was able to visualize the cystic duct in its entirety from its proximal insertion into the gallbladder, to its distal junction with the common hepatic /common bile duct junction. At this point, I carefully skeletonized the proximal cystic duct with the [place] dissector. I then clipped and transected the proximal cystic duct. Next I visualized the cystic artery. Again the artery was skeletonized, clipped, and transected. I then used the Bovie cautery to take down the peritoneal attachments of the gallbladder off the liver bed. Once the gallbladder specimen was completely detached, an endo-pouch was placed through the 12 mm port site. I then placed the gallbladder specimen into the Endo pouch and removed the endo-pouch from the 12 mm port site. The specimen will now be sent to pathology for further review. I then copiously irrigated the right upper quadrant. Hemostasis was noted in the liver bed, the clips were noted to be in good position on both the cystic duct stump and the cystic artery stump. No other pathology was noted in the right upper quadrant. I then moved the laparoscope to the subxiphoid port. No iatrogenic injury or other pathology was noted in the lower abdomen. I then closed the 12 mm trocar site under direct visualization using the Dawit cone and 0 Vicryl suture. At this point, the abdomen was desufflated and all ports removed. All port sites were then closed with 4.O Monocryl subcuticular sutures. Dermabond was placed on each incision. The patient tolerated the procedure well, was extubated in the operating room postoperative and will be transferred to the recovery room in stable condition Estimated Blood Loss 5 Drains No Packing No Pathology Yes Complications No immediate complications Condition Stable Disposition PACU [facility] Billing Surgery - Charge Forward: Surgery Billing
[2025-03-23] MEDS: ONDANSETRON INJ 4 MG/2 ML VIAL IV PUSH (12:08)
[2025-03-23] MEDS: fentaNYL CITRATE INJ (*CRX) 100 MCG/2 ML VIAL 25 MCG IV PUSH ×2 (12:14→13:05)
[2025-03-23] MEDS: diphenhydrAMINE HCl INJ 50 MG/ML VIAL 12.5 MG IV PUSH (12:23)
[2025-03-23] MEDS: oxyCODONE HCL (*CRX) 5 MG TAB IR PO (13:39)
== END 2025-03-23 14:21 | disposition home or self-care (01) ==
PROVIDERS: PCP Nurse Practitioner Family; Visit Provider Surgery
PROC: 0FT44ZZ Resection of Gallbladder, Percutaneous Endoscopic Approach (ICD-10-PCS; CPT 47562; principal; 2025-03-23 11:00)
DX: K80.10 Calculus of gallbladder with chronic cholecystitis without obstruction (principal)
CPT/HCPCS: 47562; 36415; 80076; 82150; 88304; A9270; J0690; J1100; J1200; J1885; J2003; J2250; J2405; J2704; J3010; J7030; J7120

== ENCOUNTER 2025-04-19 15:48 | Emergency (ER) | payer OTHER, SELFPAY ==
--- NOTE | ~2025-04-19 | US_ITS ---
US pelvic complete Ordering provider: Evelin Shannon PA-C History: . ruptured R ovarian cyst, persistent pain, r/o tors . Comparison: None. Technique: Transabdominal ultrasound of the pelvis (Doppler ultrasound interrogation techniques used as needed for this exam.) FINDINGS: CERVIX: Normal. UTERUS: Measures 11.3x 4.7x 7 cm in length which is within normal limits and is anteverted. No myome trial masses. ENDOMETRIUM: Normal in thickness measuring 3.9 mm. (Note: the premenopausal endometrium may measure u p to 16 mm when in the secretory phase.) No endometrial masses, cysts or fluid. CUL DE SAC: No free fluid. RIGHT OVARY: Normal in size measuring 4.5x 2.7x 2.8 cm. Normal echotexture. Doppler vascular flow pre sent. LEFT OVARY: Normal in size measuring 4.2x 3.1 x 2.8 cm. Normal echotexture. Doppler vascular flow pre sent. ADNEXA: Normal. No mass. IMPRESSION: . Normal pelvic ultrasound. Reviewed, dictated and finalized at location A. IMPRESSION: . Normal pelvic ultrasound.
--- NOTE | ~2025-04-19 | CT_ITS ---
CT abdomen pelvis w con Ordering provider: Evelin Shannon PA-C History: 24 years Female with . RUQ pain, recent GB removal . Comparison: None. Technique: CT abdomen and pelvis with IV and without oral contrast. Automated exposure control and it erative reconstruction technique were employed. The dose-length product was 408.93 mGy-cm. 100 mL Omn ipaque 350 was given IV. Findings: VISUALIZED LOWER CHEST: Normal. UPPER ABDOMINAL ORGANS: Liver: Slight dilatation of the main biliary ducts. Slightly dilated CBD. Gallbladder: Status post cholecystectomy. Spleen: Normal. Stomach/duodenum: Normal. Pancreas: Normal. Adrenals: Normal. Kidneys: Normal. PELVIC ORGANS: The bladder is normal. Slightly enlarged retroverted uterus with air bubbles is seen in the lower segment. enhancing area se en in the right ovary most likely a ruptured follicle. Slightly enlarged ovaries with the right measu ring 3.3 cm and the left 3.1 cm.. BOWEL AND MESENTERY: Colon: No evidence of diverticulitis. Fecal material is loaded in the colon. Appendix is not demonstr ated. Small Bowel: Normal. No obstruction. Peritoneum/mesentery: No free air. Minimal free fluid seen in the pelvis. No mesenteric lymphadenopat hy. RETROPERITONEUM: Normal aorta. No retroperitoneal lymphadenopathy. MUSCULOSKELETAL: Superficial soft tissues: The superficial soft tissues are normal. Bones: Normal spine. Left sacroiliitis. IMPRESSION: 1. No evidence of appendicitis, diverticulitis or intestinal obstruction. 2. Ruptured right ovarian follicle with minimal fluid seen in the pelvis. 3. Constipation. Reviewed, dictated and finalized at location A.
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
--- OUTSIDE RECORDS SUMMARY | 2025-04-19 15:50 | XMS_ITS | Clinical Summary ---
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
--- OUTSIDE RECORDS SUMMARY | 2025-04-19 15:50 | XMS_ITS | Referral Summary ---
Author Organization 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
--- OUTSIDE RECORDS SUMMARY | 2025-04-19 15:50 | XMS_ITS | Clinical Summary ---
Author Organization [facility] Address [address] [place] [address] Care Team Providers Care Routeman Name Role Phone Jayleen Ardon NP Primary Care Provider [phone] Allergies No known active allergies Social History Tobacco Use Types Packs/Day Years Used Date Smoking Tobacco: Never Passive Smoke Exposure: Never Smokeless Tobacco: Never Tobacco Cessation:Counseling Given: Not Answered Alcohol Use Standard Drinks/Week Comments Not Currently 0 (1 standard drink = 0.6 oz pur e alcohol) Comments No Sex and Gender Information Value Date Recorded Sex Assigned at Not on file Legal Sex Female 4:10 PM CDT Gender Identity Not on file Sexual Orientation Not on file Last Filed Vital Signs Vital Sign Reading Time Taken Comments Blood Pressure 114/75 11/01/2023 10:55 PM INSIDE BARREL POLISHER Pulse 68 11/01/2023 10:55 PM INSIDE BARREL POLISHER Temperature 36.4 C (97.5 F) 11/01/2023 10:55 PM INSIDE BARREL POLISHER Respiratory Rate 16 11/01/2023 10:55 PM INSIDE BARREL POLISHER Oxygen Saturation 100% 11/01/2023 10:55 PM INSIDE BARREL POLISHER Inhaled Oxygen Concentration - - Weight 81.7 kg (180 lb 1.9 oz) 11/01/2023 10:55 PM INSIDE BARREL POLISHER Height 165.1 cm (5' 5) 11/01/2023 10:55 PM INSIDE BARREL POLISHER Body Mass Index 29.97 11/01/2023 10:55 PM INSIDE BARREL POLISHER Plan of Treatment Health Maintenance Due Date Last Done Comments Cervical Cancer Screening Pap Smear (Age 21 to 29) Every 3 Years 2001 Cervical Cancer Screening 2001 Annual Physical 2004 Chlamydia Screening Females ages 16-24 2017 Hepatitis C 2019 COVID-19 Vaccine (2023-25 season) 2024 DTaP, Tdap and Td Vaccines (9 - Td or Tdap) 03/04/2029 03/04/2019, 06/18/2015, 12/15/2012, Additional history exists Hepatitis B Vaccines Completed 01/21/2005, 07/14/2002, 01/10/2002, Additional history exists Pneumococcal Vaccine: Pediatrics (0 to 5 Years) and At-Risk Patients (6 to 49 Years) Aged Out 02/08/2005, 04/18/2002, 01/29/2002 No longer eligible based on patient's age to complete this topic HPV Vaccines Completed 05/06/2014, 12/15/2012 Meningococcal B Vaccine Completed 12/10/2018, 05/25 Meningococcal Vaccine Completed 03/04/2019, 018 RSV Immunizations Under 20 Months Aged Out No longer eligible based on patient's age to complete this topic Insurance Care Teams Routeman Relationship Specialty Start Date End Date Jayleen Ardon NP PCP - General Nurse Practitioner Family 11/01/23
[2025-04-19 15:59] VITALS: BP 114/74; PULSE 80; RESP 16; TEMP 36.4; O2SAT 100
[2025-04-19 16:47] LABS: BEDSIDEPREGUCG Negative (Negative)
[2025-04-19 16:52] LABS: Add Urine Microscopic? NO; Appearance Urine Clear (Clear); Glucose Urine UA Negative (Negative); Leukocyte Esterase Ur Negative LEU/UL (Negative); Nitrate Urine Negative (Negative); Specific Grav Ur 1.007 (1.001-1.035)
[2025-04-19 18:14] VITALS: BP 112/74; PULSE 75; RESP 16; TEMP 36.7; O2SAT 100
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
--- OUTSIDE RECORDS SUMMARY | 2025-04-19 18:40 | XMS_ITS | Clinical Summary ---
Author Organization [facility] Address [address] [place] [address] Care Team Providers Care Copper Plate Lithographer Name Role Phone Jayleen Ardon NP Primary Care Provider [phone] Allergies No known active allergies Medications fluconazole [...] on file Legal Sex Female 8:39 AM CLASSIFIED AD CLERK Gender Identity Not on file Sexual Orientation [...] ALLY BOY SUSSY love MD Complications:None Delivery Location:[facility] ([address]) Comments:Not vigorous at , required PPV [...] 0 03/04/2019, 04/28/2007, Additional history exists Insurance [facility] MEDICAID IDPA Care Teams Copper Plate Lithographer Relationship Specialty Start Date End Date Jayleen Ardon NP PCP - General Nurse Practitioner 08/03/23
--- OUTSIDE RECORDS SUMMARY | 2025-04-19 18:40 | XMS_ITS | Referral Summary ---
Author Organization [facility] Address [address] [place] [address] Care Team Providers Care Senior Informatica Etl Developer Name Role Phone Jayleen Ardon NP Primary Care Provider [phone] Allergies No known active allergies Medications fluconazole [...] on file Legal Sex Female 8:39 AM DOBBY LOOMS PEGGER Gender Identity Not on file Sexual Orientation [...] Plan of Treatment Not on file Insurance [facility]HI [facility] [place] [address] [place] [address] MEDICAID IDPA Care Teams Senior Informatica Etl Developer Relationship Specialty Start Date End Date Jayleen Ardon NP PCP - General Nurse Practitioner 08/03/23
--- OUTSIDE RECORDS SUMMARY | 2025-04-19 18:40 | XMS_ITS | Clinical Summary ---
Author Organization [facility] Address [address] [place] [address] Care Team Providers Care Cephalometric Tracer Name Role Phone Jayleen Ardon NP Primary Care Provider [phone] Allergies No known active allergies Social History [...] Comments Blood Pressure 114/75 11/01/2023 10:55 PM TRUCK CATERER Pulse 68 11/01/2023 10:55 PM TRUCK CATERER Temperature 36.4 C (97.5 F) 11/01/2023 10:55 PM TRUCK CATERER Respiratory Rate 16 11/01/2023 10:55 PM TRUCK CATERER Oxygen Saturation 100% 11/01/2023 10:55 PM TRUCK CATERER Inhaled Oxygen Concentration - - Weight 81.7 kg (180 lb 1.9 oz) 11/01/2023 10:55 PM TRUCK CATERER Height 165.1 cm (5' 5) 11/01/2023 10:55 PM TRUCK CATERER Body Mass Index 29.97 11/01/2023 10:55 PM TRUCK CATERER Plan of Treatment Health Maintenance Due Date [...] to complete this topic Insurance Care Teams Cephalometric Tracer Relationship Specialty Start Date End Date Jayleen Ardon NP PCP - General Nurse Practitioner Family 11/01/23
--- NOTE | 2025-04-19 19:40 | ED_ITS ---
HPI - Abdominal Pain General Chief Complaint: Abdominal Pain Stated Complaint: abd pain, gallbladder removed on 03/23 Time Seen by Provider: 04/19/25 18:25 Source: patient Mode of arrival: ambulatory Limitations: no limitations History of Present Illness HPI narrative: Patient is a 24-year-old female who presents the ED with report of right sided abdominal pain. Patient reports she had a cholecystectomy with Dr. Taylor performed here on 03/23/25. She had a normal postop appointment on 04/05. Over the past couple days, however she has been having pain throughout her R upper and lower abdomen. Also reports nausea, occasional vomiting, decreased appetite. Has had loose stools since her surgery. Denies changes in this. Denies rectal bleeding, melena, fevers. Related Data Home Medications ?Medication ?Instructions ?Recorded ?Confirmed ?Last Taken ?Type escitalopram oxalate 5 mg tablet 5 mg PO DAILY 03/21/25 04/05/25 Unknown History (Lexapro) Allergies Allergy/AdvReac Type Severity Reaction Status Date / Time No Known Allergies Allergy Verified 04/05/25 09:16 Review of Systems 2 Review of Systems: All systems reviewed & are unremarkable except as noted in HPI. 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 Taylor Hx of tonsillectomy 2023 History of foot surgery History of appendectomy 2013 Family History Family History Sibling Asthma Hypertension Depression Sibling ADHD Asthma Father Hypertension Alcoholism Depression Heart disease Grandparent Diabetes mellitus Heart disease Hypertension Cerebrovascular accident Social History Social History Social History: Caffeine- 2 cups daily Smoking status: Never smoker Alcohol intake: former Alcohol use details: occasionally Substance use: never Substance use type: does not use Do You Feel Safe in your Home?: Yes Lack of Transportation: No Lack of Food: Never True Current Housing: I Have Housing Concerned About Future Housing: No Difficulty Paying Gas/Electric Bills: No Difficulty Paying for Meds: No Currently Unemployed: No Education: High School Diploma/GED Difficulty w/ Childcare or Family Care: No Living arrangements: with family Occupation/Education: occupation 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 HEAD: Normocephalic, atraumatic. RESPIRATORY: Airway patent, respirations nonlabored. Clear to auscultation bilaterally, no rales, rhonchi, wheezing. CARDIOVASCULAR: Regular rate and rhythm without murmurs, rubs, or gallops. ABDOMINAL: Soft, diffuse tenderness throughout lower abdomen, worst in right lower quadrant, right upper quadrant. No rebound, nondistended. Normoactive BS. MUSCULOSKELETAL: Moves all extremities. No gross deformities. SKIN: Warm, dry, normal color. NEURO: A&O X3. Speech clear. Cranial nerves II-XII grossly intact. Steady gait. No ataxic movements. PSYCHIATRIC: Appropriate mood and affect. Normal interaction. Course Vital Signs Vital signs: Vital Signs Temperature 97.6 F 04/19/25 15:59 Pulse Rate 80 04/19/25 15:59 Respiratory Rate 16 04/19/25 15:59 Blood Pressure 114/74 04/19/25 15:59 Pulse Oximetry 100 04/19/25 15:59 Oxygen Delivery Room Air 04/19/25 15:59 Temperature 98.0 F 04/19/25 18:14 Pulse Rate 62 04/20/25 00:40 Respiratory Rate 13 04/20/25 00:40 Blood Pressure 105/60 04/20/25 00:40 Pulse Oximetry 100 04/20/25 00:40 Oxygen Delivery Room Air 04/19/25 15:59 MDM - Abdominal Pain MDM Narrative Medical decision making narrative: Patient presented to ED with right-sided abdominal pain over the past couple of days, nausea, vomiting. History of recent cholecystectomy. Vital signs stable upon arrival. Patient mildly uncomfortable appearing, but not in any acute distress. Laboratory studies without leukocytosis or anemia. Stable electrolytes. Stable kidney function. Normal LFTs and lipase. UA without signs of infection. Urine is negative. CT scan of abdomen/pelvis without any evidence of complications related to cholecystectomy. No evidence of bile leak, abscess. Does show constipation as well as ruptured right ovarian follicle with some fluid seen in the pelvis. Ultrasound obtained and without evidence of torsion. Good vascular blood flow to both ovaries. Discussed lab and imaging findings with patient. She is feeling improved with supportive therapy. Discussed need for close follow-up with OBGYN for further evaluation of ruptured ovarian cyst. Discussed constipation management. Will prescribe short course of pain medication for home. Advised to continue Tylenol/ibuprofen. Given strict return precautions. She is in agreement with plan, feels comfortable going home. Discharged in stable condition. Medical Records Attestation: I reviewed the patient's medical records. Lab Data Attestation: I reviewed the patient's lab results. 04/19/25 19:38 04/19/25 19:38 Labs: Lab Results 04/19/25 04/19/25 04/19/25 Range/Units 16:41 16:45 19:38 WBC 9.7 (4.5-10.0) K/mm3 RBC 4.25 (4.2-5.4) M/mm3 Hgb 12.0 (12.0-15.0) g/dL Hct 37.4 (37.0-47.0) % MCV 88.0 (80-100) fl MCH 28.2 (26-34) pg MCHC 32.1 (32-36) g/dl RDW 13.3 (11.5-14.5) % Plt Count 212 (150-375) k/mm3 MPV 10.6 H (7.4-10.4) fl Immature Gran % (Auto) 0.4 (0-0.5) % Neut % (Auto) 64.4 (45.5-73.1) % Lymph % (Auto) 26.7 (18.3-44.2) % [place] % (Auto) 7.3 (2.6-8.5) % Eos % (Auto) 0.6 (0-4.4) % Baso % (Auto) 0.6 (0.2-1.2) % Lymph # (Auto) 2.58 (0.9-3.2) K/mm3 [place] # (Auto) 0.7 H (0.1-0.6) K/mm3 Eos # (Auto) 0.1 (0-0.3) K/mm3 Baso # (Auto) 0.1 (0.0-0.1) K/mm3 Abs Immat Gran (auto) 0.04 H (0.00-0.031) K/mm3 Absolute Neuts (auto) 6.2 (1.3-6.7) K/mm3 Absolute Nucleated RBC 0.000 (0.0-0.012) K/mm3 Nucleated RBC % 0.0 (0.0-0.2) % Sodium 137 (137-145) mmol/L Potassium 3.8 (3.4-5.0) mmol/L Chloride 101 (98-107) mmol/L Carbon Dioxide 26 (22-30) mmol/L Anion Gap 10 (4-12) mmol/L BUN 8 (7-17) mg/dL Creatinine 0.67 L (0.7-1.0) mg/dL Estim Creat Clear Calc 101 ml/min Estimated GFR > 60 (59 - ) Glucose 89 (65-110) mg/dL Calcium 9.2 (8.4-10.2) mg/dL Total Bilirubin 0.4 (0.2-1.3) mg/dL AST 26 (14-36) U/L ALT 10 (6-35) U/L Alkaline Phosphatase 68 (38-126) U/L Total Protein 8.3 H (6.3-8.2) g/dL Albumin 4.6 (3.5-5.1) g/dL Lipase 85 (23-300) U/L Urine Color Yellow (Yellow) Urine Appearance Clear (Clear) Urine pH 6.5 (5.0-9.0) Ur Specific [place] 1.007 (1.001-1.035) Urine Protein Negative (Negative) mg/dL Urine Glucose (UA) Negative (Negative) mg/dL Urine Ketones Negative (Negative) mg/dL Ur Blood (Man) Negative (Negative) Urine Nitrate Negative (Negative) Urine Bilirubin Negative (Negative) Urine Urobilinogen 0.2 (<2.0) mg/dL Leukocyte Esterase Rfl Negative (Negative) ZAY/UL POC Urine HCG, Qual Negative (Negative) Imaging Data Attestation: I personally reviewed and interpreted this imaging study as follows: Radiologist's impression: ITS Impressions Abdomen/Pelvis CT 04/19/25 22:14 IMPRESSION: 1. No evidence of appendicitis, diverticulitis or intestinal obstruction. 2. Ruptured right ovarian follicle with minimal fluid seen in the pelvis. 3. Constipation. Pelvis Ultrasound 04/19/25 23:43 IMPRESSION: . Normal pelvic ultrasound. Discharge Plan Discharge Clinical Impression: Right sided abdominal pain, Rupture of cyst of right ovary Constipation Qualifiers: Constipation type: unspecified constipation type Qualified Code(s): K59.00 - Constipation, unspecified Patient Disposition: Home Condition: Stable Instructions: Antibiotic Form, Ovarian Cyst (ED), Ruptured Ovarian Cyst (ED) Additional Instructions: Continue Tylenol, ibuprofen as needed for pain. [place] as needed for more severe pain. You may also use heating pad as needed. Follow-up with your OBGYN for further evaluation. Return to the ED if you experience worsening or severe pain, unable to keep down food or drink, fevers, abnormal vaginal bleeding, or any other symptoms of concern. Your CT scan did show evidence of constipation. Recommend MiraLax/Dulcolax as needed for this. Stay well hydrated. Recommend high-fiber diet. Patient Language: Monegasque Prescriptions: New hydrocodone-acetaminophen 5-325 mg tablet 1 tablet PO Q6H PRN (Reason: pain) Qty: 10 0RF No Action escitalopram oxalate [Lexapro] 5 mg tablet 5 mg PO DAILY Questran Light 4 gram powder 4 g PO BID Qty: 210 0RF Rx Instructions: administer w/meal; avoid other meds within 1hr before or 4-6hr after dose Follow-up/Referrals: Reva,LEE Clemens [Primary Care Provider] - Kishor Drake MD [Physician] - (OBGYN) Time of Disposition: 00:21
[2025-04-19 19:46] LABS: Hematocrit 37.4 % (37.0-47.0); Hemoglobin 12.0 g/dL (12.0-15.0); Immature Granulocyte Percent A 0.4 % (0-0.5); Lymphocytes Absolute Auto 2.58 K/mm3 (0.9-3.2); Mean Corpuscular HGB Conc 32.1 g/dl (32-36); Mean Corpuscular Hemoglobin 28.2 pg (26-34); Mean Corpuscular Volume 88.0 fl (80-100); Nucleated Red Blood Cells Absolute Auto 0.000 K/mm3 (0.0-0.012); Nucleated Red Blood Cells Perc 0.0 % (0.0-0.2); Platelet Count Result 212 k/mm3 (150-375); Red Blood Count 4.25 M/mm3 (4.2-5.4); White Blood Count 9.7 K/mm3 (4.5-10.0)
[2025-04-19 19:55] LABS: Alanine Aminotransferase 10 U/L (6-35); Albumin Level 4.6 g/dL (3.5-5.1); Alkaline Phosphatase 68 U/L (38-126); Anion Gap 10 mmol/L (4-12); Aspartate Amino Transferase 26 U/L (14-36); Bilirubin,Total 0.4 mg/dL (0.2-1.3); Blood Urea Nitrogen 8 mg/dL (7-17); Calcium 9.2 mg/dL (8.4-10.2); Carbon Dioxide 26 mmol/L (22-30); Chloride 101 mmol/L (98-107); Estimated CRCL calculation 101 ml/min; Estimated Glomerular Filt Rate > 60; Glucose 89 mg/dL (65-110); Lipase 85 U/L (23-300); Potassium 3.8 mmol/L (3.4-5.0); Sodium 137 mmol/L (137-145); Total Protein 8.3 g/dL (6.3-8.2)
[2025-04-19] MEDS: ONDANSETRON INJ 4 MG/2 ML VIAL IV PUSH (20:09)
[2025-04-19] MEDS: MORPHINE SULFATE (*CRX) 4 MG/ML INJ IV PUSH (20:09)
[2025-04-19] MEDS: FAMOTIDINE 20 MG/2 ML VIAL IV PUSH (20:09)
[2025-04-19] MEDS: SODIUM CHLORIDE 0.9% IV 1,000 ML 999 ML IV CONT (20:10)
[2025-04-19 20:13] VITALS: BP 100/59; PULSE 73; RESP 13; O2SAT 100
[2025-04-19] MEDS: HYDROmorphone HCL INJ (*CRX) 2 MG/ML VIAL 0.5 MG IV PUSH (21:06)
[2025-04-19 22:31] VITALS: BP 117/85; PULSE 64; RESP 12; O2SAT 100
[2025-04-20] MEDS: KETOROLAC 30 MG/ML VIAL (*BKC) IV PUSH (00:36)
[2025-04-20 00:40] VITALS: BP 105/60; PULSE 62; RESP 13; O2SAT 100
== END 2025-04-20 00:42 | disposition home or self-care (01) ==
PROVIDERS: Emergency Medicine; Emergency Provider Physician Assistant; PCP Nurse Practitioner Family
DX: N83.201 Unspecified ovarian cyst, right side (principal); K59.00 Constipation, unspecified; R10.9 Unspecified abdominal pain; F41.9 Anxiety disorder, unspecified; D64.9 Anemia, unspecified
CPT/HCPCS: 36415; 74177; 76856; 80053; 81003; 81025; 83690; 85025; 96361; 96374; 96375; 99284; J1171; J1885; J2270; J2405; J7030; Q9967

== ENCOUNTER 2025-06-02 16:08 | Outpatient (CLI) | payer OTHER, SELFPAY ==
--- OUTSIDE RECORDS SUMMARY | 2025-06-02 16:11 | XMS_ITS | Clinical Summary ---
Author Organization [facility] Address [address] [place] [id number] Care Team Providers Care Paint Roller Winder Name Role Phone Jayleen Ardon NP Primary Care Provider [phone] Allergies No known active allergies Social History [...] Comments Blood Pressure 114/75 11/01/2023 10:55 PM CUE SELECTOR Pulse 68 11/01/2023 10:55 PM CUE SELECTOR Temperature 36.4 C (97.5 F) 11/01/2023 10:55 PM CUE SELECTOR Respiratory Rate 16 11/01/2023 10:55 PM CUE SELECTOR Oxygen Saturation 100% 11/01/2023 10:55 PM CUE SELECTOR Inhaled Oxygen Concentration - - Weight 81.7 kg (180 lb 1.9 oz) 11/01/2023 10:55 PM CUE SELECTOR Height 165.1 cm (5' 5) 11/01/2023 10:55 PM CUE SELECTOR Body Mass Index 29.97 11/01/2023 10:55 PM CUE SELECTOR Plan of Treatment Health Maintenance Due Date [...] to complete this topic Insurance Care Teams Paint Roller Winder Relationship Specialty Start Date End Date Jayleen Ardon NP PCP - General Nurse Practitioner Family 11/01/23
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
--- OUTSIDE RECORDS SUMMARY | 2025-06-02 16:11 | XMS_ITS | Clinical Summary ---
Author Organization [facility] Address [address] [place] [address] Care Team Providers Care Steel Spar Operator Name Role Phone Jayleen Ardon NP [...] on file Legal Sex Female 8:39 AM [employer] MANAGER Gender Identity Not on file Sexual [...] ALLY BOY SUSSY love MD Complications:None Delivery Location:[facility] ([address]) Comments:Not vigorous at , required [...] Screening 10/28/2023 10/28/2022, 12/19/19 21 Influenza Vaccine (#1) 2025 9, 07/12/2019, 08/29/2011, Additional history exists DTaP/Tdap/Td Vaccine (8 - Td or Tdap) 03/04/2029 03/04/2019, 06/18/2015, 04/28/2007, Additional history exists Hepatitis B Screening Completed 01/21/2005 , 07/14/2002, 01/10/2002, Additional history exists Pneumococcal vaccine <65 Completed 005, 04/18/2002, 01/29/2002 Meningococcal B Vaccine Completed 12/10/2018, 05/25 Varicella Vaccines Completed 04/08/2019, 0 03/04/2019, 04/28/2007, Additional history exists Insurance [facility] [facility] MEDICAID IDPA Care Teams Steel Spar Operator Relationship Specialty Start Date End Date Jayleen Ardon NP PCP - General Nurse Practitioner 08/03/23
[2025-06-02 16:44] LABS: Hematocrit 34.4 % (37.0-47.0); Hemoglobin 10.9 g/dL (12.0-15.0); Mean Corpuscular HGB Conc 31.7 g/dl (32-36); Mean Corpuscular Hemoglobin 27.7 pg (26-34); Mean Corpuscular Volume 87.5 fl (80-100); Platelet Count Result 240 k/mm3 (150-375); Red Blood Count 3.93 M/mm3 (4.2-5.4); White Blood Count 7.8 K/mm3 (4.5-10.0)
[2025-06-02 17:03] LABS: Alanine Aminotransferase 11 U/L (6-35); Albumin Level 4.5 g/dL (3.5-5.1); Alkaline Phosphatase 74 U/L (38-126); Aspartate Amino Transferase 26 U/L (14-36); Bilirubin,Total 0.3 mg/dL (0.2-1.3); Lipase 111 U/L (23-300); Total Protein 8.0 g/dL (6.3-8.2)
== END 2025-06-02 16:09 | disposition home or self-care (01) ==
LOC: ANHLAB 16:08
PROVIDERS: PCP Nurse Practitioner Family; Visit Provider Nurse Practitioner Family
DX: R10.11 Right upper quadrant pain (principal); Z90.49 Acquired absence of other specified parts of digestive tract
CPT/HCPCS: 36415; 80076; 83690; 85027

== ENCOUNTER 2025-07-07 16:04 | Outpatient (CLI) | payer OTHER, SELFPAY ==
--- OUTSIDE RECORDS SUMMARY | 2025-07-07 16:07 | XMS_ITS | Clinical Summary ---
Author Organization [facility] Address [address] [place] [address] Care Team Providers Care Independent Video Producer Name Role Phone Jayleen Ardon NP Primary Care Provider [phone] Allergies No known active allergies Medications fluconazole [...] on file Legal Sex Female 8:39 AM CASE OPERATOR Gender Identity Not on file Sexual [...] MD Complications:None Delivery Location:[facility] ([address]) Comments:Not vigorous at , required PPV [...] 0 03/04/2019, 04/28/2007, Additional history exists Insurance [employer] [facility] MEDICAID IDPA Care Teams Independent Video Producer Relationship Specialty Start Date End Date Jayleen Ardon NP PCP - General Nurse Practitioner 08/03/23
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
--- OUTSIDE RECORDS SUMMARY | 2025-07-07 16:07 | XMS_ITS | Clinical Summary ---
Author Organization [facility] Address [address] [place] [address] Care Team Providers Care Contracts Director Name Role Phone Jayleen Ardon NP Primary Care Provider [phone] Allergies No known active allergies Social History [...] Comments Blood Pressure 114/75 11/01/2023 10:55 PM LIBRARY SALES CONSULTANT Pulse 68 11/01/2023 10:55 PM LIBRARY SALES CONSULTANT Temperature 36.4 C (97.5 F) 11/01/2023 10:55 PM LIBRARY SALES CONSULTANT Respiratory Rate 16 11/01/2023 10:55 PM LIBRARY SALES CONSULTANT Oxygen Saturation 100% 11/01/2023 10:55 PM LIBRARY SALES CONSULTANT Inhaled Oxygen Concentration - - Weight 81.7 kg (180 lb 1.9 oz) 11/01/2023 10:55 PM LIBRARY SALES CONSULTANT Height 165.1 cm (5' 5) 11/01/2023 10:55 PM LIBRARY SALES CONSULTANT Body Mass Index 29.97 11/01/2023 10:55 PM LIBRARY SALES CONSULTANT Plan of Treatment Upcoming Encounters Date Type Department Care Team (Late st Contact Info) Description 07/26/2025 3:45 PM CDT [facility] [address] [place] [address] Wanda Salazar, [facility]- [address] [place] [address] Health Maintenance Due Date Last Done Comments Cervical Cancer Screening Pap Smear (Age 21 to 29) Every 3 Years 2001 Cervical Cancer Screening 2001 Annual Physical 2004 Chlamydia Screening Females ages 16-24 2017 Hepatitis C 2019 COVID-19 Vaccine ( season) 2025 DTaP, Tdap and Td Vaccines (9 - [...] patient's age to complete this topic Insurance [employer] Care Teams Contracts Director Relationship Specialty Start Date End Date Jayleen Ardon NP PCP - General Nurse Practitioner Family 11/01/23
[2025-07-07 16:24] LABS: Hematocrit 33.2 % (37.0-47.0); Hemoglobin 10.6 g/dL (12.0-15.0); Mean Corpuscular HGB Conc 31.9 g/dl (32-36); Mean Corpuscular Hemoglobin 27.2 pg (26-34); Mean Corpuscular Volume 85.3 fl (80-100); Platelet Count Result 222 k/mm3 (150-375); Red Blood Count 3.89 M/mm3 (4.2-5.4); White Blood Count 7.0 K/mm3 (4.5-10.0)
[2025-07-07 16:40] LABS: Iron 31 ug/dL (37-170)
[2025-07-07 16:51] LABS: Percent Iron Saturation 7 % (20-50)
[2025-07-07 17:16] LABS: Ferritin 8.11 ng/mL (6.24-137)
== END 2025-07-07 16:05 | disposition home or self-care (01) ==
LOC: ANHLAB 16:05
PROVIDERS: PCP Nurse Practitioner Family; Visit Provider Nurse Practitioner Family
DX: D64.9 Anemia, unspecified (principal)
CPT/HCPCS: 36415; 82728; 83540; 83550; 85027

== ENCOUNTER 2025-07-10 09:40 | Outpatient (CLI) | payer OTHER, SELFPAY ==
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
== END 2025-07-10 09:41 | disposition home or self-care (01) ==
LOC: GOSHIMG 09:40
PROVIDERS: PCP Student in an Organized Health Care Education/Training Program; Visit Provider Student in an Organized Health Care Education/Training Program
DX: N85.2 Hypertrophy of uterus (principal); R10.2 Pelvic and perineal pain
CPT/HCPCS: 76830; 76856

== ENCOUNTER 2025-07-10 16:32 | Outpatient (CLI) | payer OTHER, SELFPAY ==
--- OUTSIDE RECORDS SUMMARY | 2025-07-10 17:03 | XMS_ITS | Clinical Summary ---
Author Organization [facility] Address [address] [place] [address] Care Team Providers Care In Mold Coater Name Role Phone Jayleen Ardon NP Primary Care Provider [phone] Allergies No known active allergies Social History [...] Comments Blood Pressure 114/75 11/01/2023 10:55 PM PROSTHODONTIST/OWNER Pulse 68 11/01/2023 10:55 PM PROSTHODONTIST/OWNER Temperature 36.4 C (97.5 F) 11/01/2023 10:55 PM PROSTHODONTIST/OWNER Respiratory Rate 16 11/01/2023 10:55 PM PROSTHODONTIST/OWNER Oxygen Saturation 100% 11/01/2023 10:55 PM PROSTHODONTIST/OWNER Inhaled Oxygen Concentration - - Weight 81.7 kg (180 lb 1.9 oz) 11/01/2023 10:55 PM PROSTHODONTIST/OWNER Height 165.1 cm (5' 5) 11/01/2023 10:55 PM PROSTHODONTIST/OWNER Body Mass Index 29.97 11/01/2023 10:55 PM PROSTHODONTIST/OWNER Plan of Treatment Upcoming Encounters Date Type Department Care Team (Late st Contact Info) Description 07/26/2025 3:45 PM CDT [facility] [address] [place] [address] Wanda Salazar, [facility]- [address] [place] [address] Health Maintenance Due Date Last Done Comments [...] patient's age to complete this topic Insurance [employer] Care Teams In Mold Coater Relationship Specialty Start Date End Date Jayleen Ardon NP PCP - General Nurse Practitioner Family 11/01/23
--- OUTSIDE RECORDS SUMMARY | 2025-07-10 17:03 | XMS_ITS | Clinical Summary ---
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
[2025-07-10 18:25] LABS: Thyroid Stimulating Hormone 1.340 uIU/mL (0.465-4.680)
[2025-07-12 15:09] LABS: Deamidated Gliadin Abs, IgA 5 units (0-19); Deamidated Gliadin Abs, IgG 2 units (0-19); Immunoglobulin A, Qn 335 mg/dL (87-352)
== END 2025-07-10 16:33 | disposition home or self-care (01) ==
LOC: ANHLAB 16:33
PROVIDERS: PCP Student in an Organized Health Care Education/Training Program; Visit Provider Nurse Practitioner Family
DX: K74.5 Biliary cirrhosis, unspecified (principal); R19.7 Diarrhea, unspecified; R10.11 Right upper quadrant pain; D50.9 Iron deficiency anemia, unspecified
CPT/HCPCS: 36415; 82784; 84436; 84443; 86231; 86258

== ENCOUNTER 2025-08-02 01:44 | Day surgery (SDC) | payer OTHER, SELFPAY ==
[2025-07-28 13:53] VITALS: BMI 28.4
[2025-08-02 12:15] VITALS: BP 114/67; PULSE 90; RESP 16; TEMP 36.7; O2SAT 100; BMI 28.0
[2025-08-02 12:43] LABS: BEDSIDEPREGUCG Negative (Negative)
[2025-08-02] MEDS: LACTATED RINGERS 1,000 ML 150 ML IV CONT (12:53)
--- NOTE | 2025-08-02 13:52 | P.HP_ITS ---
H&P: HPI History of Present Illness Date/Time: 08/02/25 13:52 Chief Complaint: Rectal bleeding-diarrhea Narrative: This patient is referred for a colonoscopy, for a complex history including abdominal pain, intermittent diarrhea and rectal bleeding of minor amount. 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 Brandon Torres of tonsillectomy 2023 History of foot surgery History of appendectomy 2013 Family History Family History Sibling Asthma Hypertension Depression Sibling ADHD Asthma Father Hypertension Alcoholism Depression Heart disease Grandparent Diabetes mellitus Heart disease Hypertension Cerebrovascular accident Social History Social History Social History: Caffeine- 2 cups daily Smoking status: Never smoker Alcohol intake: former Alcohol use details: occasionally Substance use: never Substance use type: does not use Do You Feel Safe in your Home?: Yes Lack of Transportation: No Lack of Food: Never True Current Housing: I Have Housing Concerned About Future Housing: No Difficulty Paying Gas/Electric Bills: No Difficulty Paying for Meds: No Currently Unemployed: No Education: High School Diploma/GED Difficulty w/ Childcare or Family Care: No Living arrangements: alone Occupation/Education: occupation 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 Gender identity (if verbalized by the patient): Female Spiritual care concerns: No Agree to blood products: Yes Meds Home Medications and Allergies Home Medications ?Medication ?Instructions ?Recorded ?Confirmed ?Type colestipol 1 gram tablet 1 g PO BID #60 tabs 06/02/25 08/02/25 Rx hydroxyzine HCl 10 mg tablet 10 mg PO TID PRN nausea a nd 06/02/25 07/28/25 History vomiting omeprazole 40 mg capsule,delayed 40 mg PO DAILY #30 ca ps 06/02/25 08/02/25 Rx release ferrous sulfate 325 mg (65 mg 325 mg PO BID #60 tabs 0 07/10/25 08/02/25 Rx iron) tablet sucralfate 1 gram tablet (Carafate) 1 g PO TID #90 tab s 07/10/25 08/02/25 Rx buspirone 10 mg tablet 15 mg PO BID 07/28/25 History Allergies Allergy/AdvReac Type Severity Reaction Status Date / Time No Known Allergies Allergy Verified 08/02/25 12:22 Vital Signs Vital Signs - 24 hr 08/02/25 12:15 Temperature 98.1 F Pulse Rate 90 Respiratory Rate 16 Blood Pressure 114/67 Pulse Oximetry 100 Oxygen Delivery Room Air Exam Const: General: cooperative and healthy appearing Resp: Effort & Inspection: normal respiratory effort and able to speak in complete sentences Auscultation: clear to auscultation bilaterally Cardio: Rate: regular rate Rhythm: regular rhythm GI: Inspection: normal to inspection GI Palp: No No hepatosplenomegaly present Auscultation: normal bowel sounds Rectal Exam: deferred Skin: General skin exam: normal color Psych: Appearance: grossly normal Mental Status: mental status grossly normal Assessment and Plan Assessment and plan (1) Diarrhea: Qualifiers: Diarrhea type: unspecified type Qualified Code(s): R19.7 - Diarrhea, unspecified Code(s): R19.7 - Diarrhea, unspecified Status: Acute Assessment and Plan: The patient is deemed a good candidate for the procedure. Consent signed. Will proceed. (2) PRB (rectal bleeding): Code(s): K62.5 - Hemorrhage of anus and rectum Status: Acute
--- NOTE | 2025-08-02 13:57 | WPDANESEPPF ---
Anes - Initial Pre Proc Eval Procedure: Operation Date: 08/02/25 13:45 Proposed Procedures p Diagnostic Colonoscopy - Juan Schrader MD Date/Time: 08/02/25 13:57 Surgeon: Juan Schrader MD Pre Op Diagnosis: Diarrhea Pre Op Diagnosis: Diarrhea, unspecified Patient Data Age: 24 Gender: F Height: 1.65 m Weight: 76.5 kg Last Vital Signs Temp 36.7 C 08/02/25 12:15 Pulse 90 08/02/25 12:15 Resp 16 08/02/25 12:15 BP 114/67 08/02/25 12:15 Pulse Ox 100 08/02/25 12:15 O2 Del Method Room Air 08/02/25 12:15 Allergies Allergy/AdvReac Type Severity Reaction Status Date / Time No Known Allergies Allergy Verified 08/02/25 12:22 Home Medications ?Medication ?Instructions ?Recorded ?Confirmed ?Type colestipol 1 gram tablet 1 g PO BID #60 tabs 06/02/25 08/02/25 Rx hydroxyzine HCl 10 mg tablet 10 mg PO TID PRN nausea and 06/02/25 07/28/25 History vomiting omeprazole 40 mg capsule,delayed 40 mg PO DAILY #30 caps 06/02/25 08/02/25 Rx release ferrous sulfate 325 mg (65 mg 325 mg PO BID #60 tabs 07/10/25 08/02/25 Rx iron) tablet sucralfate 1 gram tablet (Carafate) 1 g PO TID #90 tabs 07/10/25 08/02/25 Rx buspirone 10 mg tablet 15 mg PO BID 07/28/25 08/02/25 History Laboratory Tests 08/02/25 12:15 POC Urine HCG, Qual Negative (Negative) : patient denies HCG: negative Patient hx anesthesia problems: none Family hx anesthesia problems: none Results Review: All pre-operative results and documents have been reviewed as part of the pre-operative evaluation. 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 Brandon Torres of tonsillectomy 2023 History of foot surgery History of appendectomy 2013 Family History Family History Sibling Asthma Hypertension Depression Sibling ADHD Asthma Father Hypertension Alcoholism Depression Heart disease Grandparent Diabetes mellitus Heart disease Hypertension Cerebrovascular accident Social History Social History Social History: Caffeine- 2 cups daily Smoking status: Never smoker Alcohol intake: former Alcohol use details: occasionally Substance use: never Substance use type: does not use Do You Feel Safe in your Home?: Yes Lack of Transportation: No Lack of Food: Never True Current Housing: I Have Housing Concerned About Future Housing: No Difficulty Paying Gas/Electric Bills: No Difficulty Paying for Meds: No Currently Unemployed: No Education: High School Diploma/GED Difficulty w/ Childcare or Family Care: No Living arrangements: alone Occupation/Education: occupation 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 Gender identity (if verbalized by the patient): Female Spiritual care concerns: No Agree to blood products: Yes Anes - Eval Final PreProcedure Day of Procedure 08/02/25 13:57 Patient weight: normal Heart: regular rate and rhythm Lungs: clear to auscultation and normal air movement Airway: Mallampati scale class II Neurological: alert and oriented Last oral intake: >/= 8 hours ASA classification: II Emergent: no Anesthetic plan: proceed Anesthesia type and monitoring: general GIVS and standard monitoring Results Review: All pre-operative results and documents have been reviewed as part of the pre-operative evaluation. Informed Consent: The patient's anesthetic plan and its attendant risks and benefits were discussed with the patient/family/POA. Questions were solicited and answers provided to the satisfaction of the patient/family/POA.
--- NOTE | 2025-08-02 14:10 | S_PTH ---
PATIENT: Glenn Romero LOC: [facility]#:[id number] AGE/SX: 24/F ROOM: RE08/02/[address]: Juan Schrader MD : 2000 BED: DIS: 08/02/2025 SPEC #: [id number] RECD: 08/03/25 08:49 STATUS: KACEY REQ #: [id number] ROSA: 08/02/25 14:[address]: Juan Schrader DEPT: [facility] Surgical RECD BY: Kassidy Reaves MLT, ([facility]) ENTERED: 08/03/25 08:49 SP TYPE: Surgical OTHR DR: Lucas Akhtar, PA Tissues: A - Colon Biopsy B - Colon Biopsy Procedures: Hematoxylin and Eosin Stain Gross and Microscopic Level 4
[2025-08-02 14:18] VITALS: BP 99/64; PULSE 79; RESP 21; O2SAT 100
[2025-08-02 14:28] VITALS: BP 102/69; PULSE 85; RESP 23; O2SAT 100
[2025-08-02 14:38] VITALS: BP 106/74; PULSE 70; RESP 14; O2SAT 100
== END 2025-08-02 14:45 | disposition home or self-care (01) ==
PROVIDERS: Anesthesiology; PCP Physician Assistant Medical; Referring Provider Nurse Practitioner Family; Visit Provider Internal Medicine Gastroenterology
PROC: 0DJD8ZZ Inspection of Lower Intestinal Tract, Via Natural or Artificial Opening Endoscopic (ICD-10-PCS; CPT 45378; principal; 2025-08-02 13:45)
DX: R19.7 Diarrhea, unspecified (principal)
CPT/HCPCS: 45380; 88305; J2003; J2704; J7120

== ENCOUNTER 2025-08-09 11:45 | Outpatient (CLI) | payer OTHER, SELFPAY ==
[2025-08-09 12:49] LABS: Hematocrit 37.8 % (37.0-47.0); Hemoglobin 12.2 g/dL (12.0-15.0); Mean Corpuscular HGB Conc 32.3 g/dl (32-36); Mean Corpuscular Hemoglobin 27.9 pg (26-34); Mean Corpuscular Volume 86.5 fl (80-100); Platelet Count Result 218 k/mm3 (150-375); Red Blood Count 4.37 M/mm3 (4.2-5.4); White Blood Count 6.2 K/mm3 (4.5-10.0)
[2025-08-09 13:05] LABS: Alanine Aminotransferase 14 U/L (6-35); Albumin Level 4.4 g/dL (3.5-5.1); Alkaline Phosphatase 67 U/L (38-126); Amylase 75 U/L (30-110); Anion Gap 9 mmol/L (4-12); Aspartate Amino Transferase 25 U/L (14-36); Bilirubin,Total 0.6 mg/dL (0.2-1.3); Blood Urea Nitrogen 10 mg/dL (7-17); Calcium 8.8 mg/dL (8.4-10.2); Carbon Dioxide 27 mmol/L (22-30); Chloride 102 mmol/L (98-107); Estimated Glomerular Filt Rate > 60; Glucose 86 mg/dL (65-110); Lipase 80 U/L (23-300); Potassium 4.1 mmol/L (3.4-5.0); Sodium 138 mmol/L (137-145); Total Protein 7.6 g/dL (6.3-8.2)
--- OUTSIDE RECORDS SUMMARY | 2025-08-09 13:20 | XMS_ITS | Clinical Summary ---
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
== END 2025-08-09 11:46 | disposition home or self-care (01) ==
LOC: ANHLAB 11:47
PROVIDERS: PCP Physician Assistant Medical; Visit Provider Nurse Practitioner Family
DX: R11.0 Nausea (principal); R93.2 Abnormal findings on diagnostic imaging of liver and biliary tract; R10.11 Right upper quadrant pain; Z90.49 Acquired absence of other specified parts of digestive tract
CPT/HCPCS: 36415; 80048; 80076; 82150; 83690; 85027